=== PATIENT | female | born 1960 | race Caucasian/White ===

== ENCOUNTER 2017-12-15 13:52 | Inpatient (IN) | payer MEDICAID ==
[~2017-12-15] VITALS: Ht 162.6 cm; Wt 80.1 kg
[2017-12-15] MEDS ORDERED: SODIUM CHLORIDE 0.9% 1,000 ML IVB ONE (14:04)
[2017-12-15 14:50] LABS: Basophils # (auto) 0 uL; Basophils % (auto) 0.3 % (0.0-2.0); Eosinophils # (auto) 0.2 uL; Eosinophils % (auto) 1.1 % (0.0-7.0); Hematocrit 45.3 % (36.0-46.0); Hemoglobin 14.6 g/dL (12.2-16.2); Lymphocytes # (auto) 1.4 uL; Lymphocytes % (auto) 9.1 % (10.0-50.0); Mean Corpuscular Hemoglobin 30.3 pg (28.0-32.0); Mean Corpuscular Hgb Conc. 32.1 g/dL (32.0-36.0); Mean Corpuscular Volume 94.3 fL (80.0-100.0); Monocytes # (auto) 1.1 uL; Monocytes % (auto) 7.2 % (0.0-12.0); Neutrophils # (auto) 12.5 uL; Neutrophils % (auto) 82.3 % (37.0-80.0); Nucleated Red Blood Cells % 0.1 %; Platelet Count (auto) 232 10^3/uL (140-450); White Blood Cell 15.1 10^3/uL (4.4-10.8)
[2017-12-15 15:09] LABS: Albumin 3.1 g/dL (3.4-5.0); Anion Gap 9 (5-15); BUN/Creatinine Ratio 19.8; Blood Alcohol < 3.0 mg/dL (0-5); Blood Urea Nitrogen 17 mg/dL (7-18); Calcium 8.5 mg/dL (8.5-10.1); Carbon Dioxide 24 mmol/L (21-32); Chloride 105 mmol/L (98-107); GFR African American 88 mL/min; GFR Non-African American 73 mL/min; Glucose 105 mg/dL (74-106); Potassium 3.9 mmol/L (3.5-5.1); Sodium 138 mmol/L (136-145)
[2017-12-15 15:16] LABS: Alanine Aminotransferase 31 U/L (13-56); Alkaline Phosphatase 71 U/L (45-117); Aspartate Aminotransferase 30 U/L (15-37); Bilirubin, Total 0.4 mg/dL (0.2-1.0); Total Protein 7.3 g/dL (6.4-8.2)
[2017-12-15] MEDS ORDERED: cefTRIAXone 1GM/10ml IVPUSH 10 ML IV ONE (15:45)
[2017-12-15] MEDS ORDERED: DEXTROSE (50%) 50ML SYRG IV PRN (15:45)
[2017-12-15] MEDS ORDERED: HYDROcodone-ACET 10/325MG TAB PO PRN (16:00)
[2017-12-15] MEDS ORDERED: ALBUTEROL SULF 2.5 MG/0.5ML(0.5%) NEB SOLN NEB PRN (16:00)
[2017-12-15] MEDS ORDERED: LORazepam 0.5 MG TAB PO PRN (16:00)
[2017-12-15] MEDS ORDERED: MORPHINE SULFATE 4 MG/ML SYR/VIAL IV PRN (16:15)
[2017-12-15] MEDS ORDERED: NITROGLYCERIN 0.4 MG SL TAB SL PRN (16:15)
[2017-12-15] MEDS ORDERED: HYDROcodone-ACET 5/325MG TAB PO PRN (16:15)
[2017-12-15] MEDS ORDERED: ACETAMINOPHEN 325 MG TAB PO PRN (16:15)
[2017-12-15] MEDS ORDERED: DOCUSATE SOD 100 MG CAP PO PRN (16:15)
[2017-12-15] MEDS ORDERED: ONDANSETRON HCL 4 MG/2 ML VIAL IV PRN (16:15)
[2017-12-15] MEDS: InsuLIN REG 1unit/0.01ml Soln (100units/ml) SC SCH ×2 (16:45→22:54)
[2017-12-15] MEDS: ACCU-CHEK COMFORT CURVE STRIP VI SCH ×2 (16:45→22:54)
[2017-12-15] MEDS: METHOCARBAMOL 500 MG TAB PO SCH ×2 (17:39→22:54)
[2017-12-15] MEDS: CALCIUM W/VIT D (600MG/400IU) TAB PO SCH (17:39)
[2017-12-15] MEDS: DICYCLOMINE HCL 10 MG CAP PO SCH ×2 (17:39→22:53)
[2017-12-15 18:35] LABS: Urine Bacteria FEW /hpf (None Seen); Urine Blood Negative /uL (Negative); Urine WBC 2 /hpf (0 - 5)
[2017-12-15 18:46] LABS: Alcohol, Urine < 3.0 mg/dL (0-5); Amphetamine Screen, Urine NEGATIVE (NEGATIVE); Barbiturate Scree,Urine NEGATIVE (NEGATIVE); Benzodiazephine Screen, Urine NEGATIVE (NEGATIVE); Cannabinoid Screen, Urine POSITIVE (NEGATIVE); Cocaine Screen, Urine NEGATIVE (NEGATIVE); Opiate Scree,Urine POSITIVE (NEGATIVE); Phencyclidine Screen, Urine NEGATIVE (NEGATIVE)
[2017-12-15 20:00] VITALS: BP 134/75
[2017-12-15 21:44] VITALS: BP_SYST 134
[2017-12-15 21:48] VITALS: BP 105/63
[2017-12-15] MEDS ORDERED: MORPHINE SULF 30 mg ER tab PO SCH (22:00)
[2017-12-15] MEDS ORDERED: AMITRIPTYLINE HCL 25 MG TAB PO SCH (22:00)
[2017-12-15] MEDS ORDERED: traZODone HCL 50 MG TAB PO SCH (22:00)
[2017-12-15] MEDS: FLUTICASONE PROP NASAL SPR 0.05 % (50MCG) 16GM EACHNOSTRI SCH (22:52)
[2017-12-15] MEDS: SODIUM CHLOR 0.9% PF (SALINE LOCK) 10ML VIAL IV SCH (22:53)
[2017-12-15] MEDS: FERROUS SULFATE 325 MG TAB PO SCH (22:53)
[2017-12-15] MEDS: NAPHCON A OP SCH (22:53)
[2017-12-15] MEDS: FAMOTIDINE 20 MG TAB PO SCH (22:54)
[2017-12-15] MEDS: POTASSIUM CHLORIDE 8 MEQ TAB PO SCH (22:54)
[2017-12-15] MEDS: HYDROXYCHLOROQUINE SULFATE 200 MG TAB PO SCH (22:54)
[2017-12-16] MEDS ORDERED: METH-532 PO (01:36)
[2017-12-16] MEDS ORDERED: FERR1TAB5 PO (01:36)
[2017-12-16] MEDS ORDERED: FLUO20CA19 PO (01:36)
[2017-12-16] MEDS ORDERED: BENA10TA9 PO (01:36)
[2017-12-16] MEDS ORDERED: CETI10TA80 PO (01:36)
[2017-12-16] MEDS ORDERED: MORP30TA PO (01:36)
[2017-12-16] MEDS ORDERED: POTA10TA51 PO (01:36)
[2017-12-16] MEDS ORDERED: MULTTAB99 PO (01:36)
[2017-12-16] MEDS ORDERED: NAPHSOL OP (01:36)
[2017-12-16] MEDS ORDERED: ZOLP10TA PO (01:36)
[2017-12-16] MEDS ORDERED: ASPI81CH43 PO (01:36)
[2017-12-16] MEDS ORDERED: FLUT1SPR5 (01:36)
[2017-12-16] MEDS ORDERED: AMIT25TA9 PO (01:36)
[2017-12-16] MEDS ORDERED: CALCTAB25 PO (01:36)
[2017-12-16] MEDS ORDERED: LORA-205 PO (01:36)
[2017-12-16] MEDS ORDERED: TRAZ300T13 PO (01:36)
[2017-12-16] MEDS ORDERED: SITA50TA PO (01:36)
[2017-12-16] MEDS ORDERED: HYDR200T PO (01:36)
[2017-12-16] MEDS ORDERED: DIC10C PO (01:36)
[2017-12-16 05:00] VITALS: BP 112/62
[2017-12-16] MEDS: METHOCARBAMOL 500 MG TAB PO SCH ×2 (06:30→13:48)
[2017-12-16] MEDS: DICYCLOMINE HCL 10 MG CAP PO SCH ×2 (06:30→13:48)
[2017-12-16] MEDS: InsuLIN REG 1unit/0.01ml Soln (100units/ml) SC SCH ×2 (06:30→12:16)
[2017-12-16] MEDS: ACCU-CHEK COMFORT CURVE STRIP VI SCH ×2 (06:30→12:16)
[2017-12-16] MEDS: FERROUS SULFATE 325 MG TAB PO SCH (06:31)
[2017-12-16] MEDS: SODIUM CHLOR 0.9% PF (SALINE LOCK) 10ML VIAL IV SCH (06:31)
[2017-12-16] MEDS ORDERED: MORPHINE SULF 30 mg ER tab PO SCH (07:00)
[2017-12-16 07:10] LABS: Basophils # (auto) 0 uL; Basophils % (auto) 0.5 % (0.0-2.0); Eosinophils # (auto) 0.4 uL; Eosinophils % (auto) 5.3 % (0.0-7.0); Hemoglobin 12.5 g/dL (12.2-16.2); Lymphocytes # (auto) 1.8 uL; Lymphocytes % (auto) 23.7 % (10.0-50.0); Mean Corpuscular Hemoglobin 30.1 pg (28.0-32.0); Mean Corpuscular Volume 94.1 fL (80.0-100.0); Monocytes # (auto) 0.7 uL; Monocytes % (auto) 9.8 % (0.0-12.0); Neutrophils # (auto) 4.6 uL; Neutrophils % (auto) 60.7 % (37.0-80.0); Nucleated Red Blood Cells % 0.1 %; Platelet Count (auto) 212 10^3/uL (140-450); Red Blood Cells 4.15 10^6/uL (4.0-5.20); Red Cell Distribution Width 14.1 % (11.8-14.3); White Blood Cell 7.6 10^3/uL (4.4-10.8)
[2017-12-16] MEDS: CALCIUM W/VIT D (600MG/400IU) TAB PO SCH (07:40)
[2017-12-16 09:00] VITALS: BP 131/66
[2017-12-16] MEDS ORDERED: cefTRIAXone 1GM/10ml IVPUSH 10 ML IV SCH (09:00)
[2017-12-16 09:31] LABS: Albumin 2.6 g/dL (3.4-5.0); BUN/Creatinine Ratio 15.5; Calcium 8.3 mg/dL (8.5-10.1); Potassium 3.9 mmol/L (3.5-5.1)
[2017-12-16 09:34] LABS: Bilirubin, Total 0.3 mg/dL (0.2-1.0)
[2017-12-16] MEDS: POTASSIUM CHLORIDE 8 MEQ TAB PO SCH (09:34)
[2017-12-16] MEDS: FAMOTIDINE 20 MG TAB PO SCH (09:34)
[2017-12-16] MEDS: NAPHCON A OP SCH (09:35)
[2017-12-16] MEDS: FLUTICASONE PROP NASAL SPR 0.05 % (50MCG) 16GM EACHNOSTRI SCH (09:35)
[2017-12-16] MEDS: HYDROXYCHLOROQUINE SULFATE 200 MG TAB PO SCH (09:35)
[2017-12-16] MEDS ORDERED: MULTIPLE VITAMIN TAB PO SCH (10:00)
[2017-12-16] MEDS ORDERED: FLUoxetine HCL 20 MG CAP PO SCH (10:00)
[2017-12-16] MEDS ORDERED: LORATADINE 10 MG TAB PO SCH (10:00)
[2017-12-16] MEDS ORDERED: ASPirin-EC 81 mg tab PO SCH (10:00)
[2017-12-16] MEDS ORDERED: JANUVIA 25 MG PO SCH (10:00)
[2017-12-16] MEDS ORDERED: BENAZEPRIL HCL 10 MG TAB PO SCH (10:00)
[2017-12-16] MEDS ORDERED: B-COMPLEX W/ C & FOLIC ACID(NEPHROVITE TAB) PO SCH (10:00)
[2017-12-16 11:51] VITALS: BP 131/66
== END 2017-12-16 13:45 | disposition home or self-care (01) | DRG 52 ==
LOC: ER 13:52 → EDBD 13:52 → TELE 13:53 → TELE-WESTW 19:29 → WEST WING 19:51
PROVIDERS: ADMIT Internal Medicine; ATTEND Internal Medicine
PROC: 5A09357 Assistance with Respiratory Ventilation, Less than 24 Consecutive Hours, Continuous Positive Airway Pressure (ICD-10-PCS; principal; 2017-12-16)
DX: R40.4 Transient alteration of awareness (principal); E11.21 Type 2 diabetes mellitus with diabetic nephropathy; E44.0 Moderate protein-calorie malnutrition; E88.09 Other disorders of plasma-protein metabolism, not elsewhere classified; D64.9 Anemia, unspecified; I12.9 Hypertensive chronic kidney disease with stage 1 through stage 4 chronic kidney disease, or unspecified chronic kidney disease; S20.212A Contusion of left front wall of thorax, initial encounter; N39.0 Urinary tract infection, site not specified; N18.2 Chronic kidney disease, stage 2 (mild); E11.22 Type 2 diabetes mellitus with diabetic chronic kidney disease; F32.9 Major depressive disorder, single episode, unspecified; F41.9 Anxiety disorder, unspecified; G89.29 Other chronic pain; M19.90 Unspecified osteoarthritis, unspecified site; M79.7 Fibromyalgia; M81.0 Age-related osteoporosis without current pathological fracture; W18.30XA Fall on same level, unspecified, initial encounter; M54.2 Cervicalgia; M54.9 Dorsalgia, unspecified; Z68.30 Body mass index [BMI] 30.0-30.9, adult; Z87.01 Personal history of pneumonia (recurrent); Z90.49 Acquired absence of other specified parts of digestive tract
CPT/HCPCS: 36415; 70450; 71101; 71250; 80053; 80307; 80320; 81001; 82962; 83036; 83735; 84443; 84484; 85025; 87086; 87088; 87186; 93005; 94660; 94761; 96361; 96374

== ENCOUNTER 2019-01-30 12:12 | Emergency (ER) | payer MEDICAID ==
[~2019-01-30] VITALS: Ht 162.6 cm; Wt 83.9 kg
[~2019-01-30 12:12] MED LIST: AMIT25TA9 PO; ASPI81CH43 PO; BENA10TA9 PO; CALCTAB25 PO; CETI10TA80 PO; DIC10C PO; FERR1TAB5 PO; FLUO20CA19 PO; FLUT1SPR5; HYDR-4441 PO; LORA-205 PO; METH-532 PO; MORP30TA PO; MULTTAB99 PO; NAPHSOL OP; POTA10TA51 PO; SITA50TA PO; TRAZ300T13 PO; ZOLP10TA PO
[2019-01-30 12:40] VITALS: BP 145/75
[2019-01-30] MEDS ORDERED: KETOROLAC TROMETH 60MG/2ML VIAL IM ONE (16:00)
[2019-01-30] MEDS ORDERED: METHOCARBAMOL 500 MG TAB PO ONE (16:00)
== END 2019-01-30 16:30 | disposition home or self-care (01) ==
LOC: ER 12:12
DX: S13.4XXA Sprain of ligaments of cervical spine, initial encounter (principal); M19.90 Unspecified osteoarthritis, unspecified site; E11.9 Type 2 diabetes mellitus without complications; I10 Essential (primary) hypertension; Z88.1 Allergy status to other antibiotic agents; Z88.5 Allergy status to narcotic agent; Z88.0 Allergy status to penicillin; Z88.2 Allergy status to sulfonamides; Z91.040 Latex allergy status; Z79.82 Long term (current) use of aspirin; Z79.899 Other long term (current) drug therapy; Z90.49 Acquired absence of other specified parts of digestive tract; V49.59XA Passenger injured in collision with other motor vehicles in traffic accident, initial encounter; Y93.89 Activity, other specified; Y99.8 Other external cause status; Y92.89 Other specified places as the place of occurrence of the external cause
CPT/HCPCS: 72040; 96372; 99283; J1885

== ENCOUNTER 2020-01-18 18:39 | Inpatient (IN) | payer MEDICAID ==
[~2020-01-18] VITALS: Ht 162.6 cm; Wt 97.1 kg
[~2020-01-18 18:39] MED LIST changes: -DIC10C PO; +DICY10CA PO; -FERR1TAB5 PO; +FERR45TA7 PO; +HYDR-4188 PO; -HYDR-4441 PO
[2020-01-18] MEDS ORDERED: levoFLOXacin 750MG 150 ML IV ONE (20:00)
[2020-01-18] MEDS ORDERED: SODIUM CHLORIDE 0.9% 1,000 ML IV ONE (20:00)
[2020-01-18] MEDS ORDERED: methylPREDNISolone SOD SUCC 125 MG/2 ML VL IV ONE (20:00)
[2020-01-18 21:19] LABS: Hemoglobin 11.5 g/dL (12.2-16.2); Lymphocytes # (auto) 1.8 10 ^3/uL (0.4-5.4); Monocytes % (auto) 7.4 % (0.0-12.0)
[2020-01-18 21:28] LABS: Basophils # (auto) 0.1 10 ^3/uL (0-0.2); Basophils % (auto) 0.5 % (0.0-2.0); Eosinophils # (auto) 0.4 10 ^3/uL (0-0.8); Eosinophils % (auto) 3.3 % (0.0-7.0); Hematocrit 36.3 % (36.0-46.0); Lymphocytes % (auto) 13.7 % (10.0-50.0); Mean Corpuscular Hemoglobin 29.7 pg (28.0-32.0); Mean Corpuscular Hgb Conc. 31.7 g/dL (32.0-36.0); Mean Corpuscular Volume 93.6 fL (80.0-100.0); Neutrophils # (auto) 9.8 10 ^3/uL (1.6-8.6); Neutrophils % (auto) 75.1 % (37.0-80.0); Platelet Count (auto) 228 10^3/uL (140-450); Red Blood Cells 3.87 10^6/uL (4.0-5.20); Red Cell Distribution Width 13.7 % (11.8-14.3); White Blood Cell 13.1 10^3/uL (4.4-10.8)
[2020-01-18 21:29] LABS: Albumin 2.3 g/dL (3.4-5.0); Calcium 7.7 mg/dL (8.5-10.1); Potassium 4.6 mmol/L (3.5-5.1)
[2020-01-18 21:34] LABS: BUN/Creatinine Ratio 9.3; Bilirubin, Total 0.5 mg/dL (0.2-1.0); Total Protein 6.3 g/dL (6.4-8.2)
[2020-01-18] MEDS ORDERED: ACETAMINOPHEN 325 MG TAB PO PRN (22:15)
[2020-01-18] MEDS ORDERED: DEXTROSE (50%) 50ML SYRG IV PRN (22:15)
[2020-01-18] MEDS ORDERED: ONDANSETRON HCL 4 MG/2 ML VIAL IV PRN (22:15)
[2020-01-18] MEDS ORDERED: MORPHINE SULF INJ 2 MG/ML SYRINGE 1ML IV PRN (22:15)
[2020-01-18] MEDS ORDERED: HYDROcodone-ACET 5/325MG TAB PO PRN (22:15)
[2020-01-18] MEDS ORDERED: NITROGLYCERIN 0.4 MG SL TAB SL PRN (22:15)
[2020-01-18 22:31] LABS: Urine Bacteria NONE SEEN /hpf (None Seen); Urine Blood Negative /uL (Negative); Urine Specific Gravity 1.014 (1.001-1.035); Urine WBC 16 /hpf (0 - 5)
[2020-01-18 22:37] LABS: Magnesium 2.2 mg/dL (1.6-2.6)
[2020-01-18 22:45] LABS: CRP High Sensitivity 9.45 mg/dL (< 0.3)
[2020-01-19] VITALS (9 sets, daily range): BP systolic 134–171; BP diastolic 64–85
--- NOTE | 2020-01-19 00:30 | NUR ---
Telemetry admit from MEKHI ALVAREZCARSON admitted to Telemetry unit after SBAR received. Patient oriented to Damaris Nicole primary RN, unit, room, bed, and unit policies regarding patient care and visiting hours. Patient now on continuous telemetry monitoring, tele box # 3 and telemetry reading on arrival to unit is SR74. Patient placed on bedside oxygen @ 2L via NC, weighed by bedscale and encouraged to call if they need something. Call light within reach, instructed to call for assist, pt verbalized understanding, IV to left AC, site patent and benign, Incentive spirometer placed at bedside and education provided, instructed to use Q1hr WA, pt verbalized understanding and able to return demonstration, All questions and concerns addressed, patient verbalized understanding.
--- NOTE | 2020-01-19 01:30 | NUR ---
ACTIVITY PT WAS NOTED AMBULATING TO BATHROOM, NOTED A DECREASE IN O2 SAT @88% WHEN ON RA AND WITH ACTIVITY, NO CURRENT C/O SOB, O2 APPLIED AND O2 INCREASED TO 96% ON 2L VIA NC, CHANGED TO 25FT NC WHEN AMBULATING TO BATHROOM, CONT CARE
[2020-01-19] MEDS: TEMAZEPAM 15 MG CAP PO PRN ×2 (01:41→22:28)
[2020-01-19] MEDS ORDERED: GABA-339 PO (01:54)
[2020-01-19] MEDS ORDERED: HYDR-531 PO (01:54)
[2020-01-19 06:21] LABS: Basophils # (auto) 0 10 ^3/uL (0-0.2); Basophils % (auto) 0.2 % (0.0-2.0); Eosinophils # (auto) 0 10 ^3/uL (0-0.8); Eosinophils % (auto) 0.1 % (0.0-7.0); Hematocrit 41.1 % (36.0-46.0); Hemoglobin 13.6 g/dL (12.2-16.2); Lymphocytes # (auto) 0.5 10 ^3/uL (0.4-5.4); Lymphocytes % (auto) 4.9 % (10.0-50.0); Mean Corpuscular Hemoglobin 31.1 pg (28.0-32.0); Mean Corpuscular Volume 94.1 fL (80.0-100.0); Monocytes # (auto) 0.2 10 ^3/uL (0-1.3); Monocytes % (auto) 2.2 % (0.0-12.0); Neutrophils # (auto) 9.6 10 ^3/uL (1.6-8.6); Neutrophils % (auto) 92.6 % (37.0-80.0); Platelet Count (auto) 218 10^3/uL (140-450); Red Blood Cells 4.37 10^6/uL (4.0-5.20); Red Cell Distribution Width 13.7 % (11.8-14.3); White Blood Cell 10.4 10^3/uL (4.4-10.8)
[2020-01-19 06:27] LABS: Potassium 4.3 mmol/L (3.5-5.1)
[2020-01-19] MEDS: ACCU-CHEK COMFORT CURVE STRIP VI SCH ×4 (06:39→22:24)
[2020-01-19] MEDS: InsuLIN REG 1unit/0.01ml Soln (100units/ml) SC SCH ×3 (06:39→17:00)
--- NOTE | 2020-01-19 06:45 | NUR ---
HTN BP 177/101, P 60, PT ASYMPTOMATIC, PT STATES " I DONT TAKE ANYTHING FOR MY BLOOD PRESSURE" PT UPDATED ON HIGH BP, PT AGREED TO TAKE AN EARLY DOSE OF BENAZEPRIL ONLY, STATES " I WILL ONLY TAKE A LOW DOSE OF BENAZEPRIL AND MY DAUGHTER WILL BRING MY MEDICATIONS THIS MORNING", CONT CARE
[2020-01-19 06:46] LABS: Albumin 2.6 g/dL (3.4-5.0); BUN/Creatinine Ratio 12.5; Bilirubin, Total 0.5 mg/dL (0.2-1.0); Calcium 8.2 mg/dL (8.5-10.1); Total Protein 7.4 g/dL (6.4-8.2)
[2020-01-19] MEDS: BENAZEPRIL HCL 10 MG TAB PO SCH (07:18)
[2020-01-19] MEDS: ALBUTEROL SULF HFA 90MCG INH 200DOSE IN SCH ×3 (07:42→22:26)
--- NOTE | 2020-01-19 07:42 | NUR ---
RT NOTE: WENT TO PTS ROOM TO ADMINISTERED ALBUTEROL HFA INHALER. HR 74, RR 18, SPO2 95% ON 2L NC. PT TOLERATED WELL NO ADVERSE REACTIONS. WILL CONTINUE TO MONITOR PT.
--- NOTE | 2020-01-19 08:15 | NUR ---
Received pt's report from Stephanie/RN, call light within reach, pt on 2 lit O2 via N/C, no pain or distress noted or reported, will continue to monitor pt.
[2020-01-19] MEDS: DOXYCYCLINE 100MG/250ML 250 ML IV SCH ×2 (10:05→21:57)
[2020-01-19] MEDS: ZINC SULFATE 220mg CAP or TAB PO SCH (10:05)
[2020-01-19] MEDS: ASCORBIC ACID 1,000 MG TAB PO SCH (10:06)
[2020-01-19] MEDS: CHOLECALCIFEROL (VITD3) 1,000IU=25mCg TAB PO SCH (10:06)
[2020-01-19] MEDS: FAMOTIDINE 20 MG TAB PO SCH ×2 (10:06→21:48)
[2020-01-19] MEDS: ENOXAPARIN SOD 40 MG/0.4 ML SYRINGE SC SCH (10:07)
[2020-01-19] MEDS ORDERED: BUSP15TA60 PO (11:49)
[2020-01-19] MEDS ORDERED: PAR20T PO (11:49)
[2020-01-19] MEDS ORDERED: ESOM0.1C PO (11:58)
[2020-01-19] MEDS ORDERED: ALOG1TAB PO (11:58)
[2020-01-19] MEDS ORDERED: DICL-164 PO (11:58)
[2020-01-19] MEDS ORDERED: DICL-176 PO (11:58)
[2020-01-19] MEDS ORDERED: DIPH25CA6 PO (11:58)
--- NOTE | 2020-01-19 12:15 | NUR ---
Pt refused to receive the insulin coverage for her blood sugar, pt's BS 227, pt educated on the risk of not receiving her insulin, and pt also educated on the benefits of receiving the insulin as schedule, will continue to monitor pt.
[2020-01-19] MEDS ORDERED: hydrALAZINE HCL 20 MG/ML VL IV PRN (13:00)
--- NOTE | 2020-01-19 13:04 | NUR ---
Called and spoke to Dr. Villalba regarding pt requesting antidiarrheal medication, pt reports 8 watery BMs, pt's BP 171/85, pt requesting for her po morphine to be restarted, and that pt does not have a PRN BP medication, orders receive for Hydralazine 10 mg iv, for the pt's home po Morphine to be start, and to send a stool sample for c. diff. Doctor stated to send the stool sample for c.diff first and if no c.diff then he will start pt on immodium, and for the rest of home medication he will come and see pt and check the home medication.
[2020-01-19] MEDS: MORPHINE SULF 30 mg ER tab PO SCH ×2 (14:08→21:46)
--- NOTE | 2020-01-19 14:32 | NUR ---
Pt requested a dressing on her Rt finger cut, pt cut herself 2 weeks ago, pt has a dry scab, picture taken, cleaned with normal saline, pad dry with gauze and covered with a clear tegaderm dressing. Pt refused a band aid.
[2020-01-19] MEDS ORDERED: cefTRIAXone 1GM/50ML D5W 50 ML IV ONE (15:30)
--- NOTE | 2020-01-19 17:00 | NUR ---
Report given to DEQUAN Vega, pt taken to room 297A with all her personal belongings, pt's home medications given to nurse DEQUAN Vega.
--- NOTE | 2020-01-19 17:00 | NUR ---
RECEIVED REPORT FROM DEQUAN HOLLAND.
--- NOTE | 2020-01-19 17:04 | NUR ---
Dr. Villalba at bed side to see pt, doctor informed that pt refused insulin, that pt wants her home medications restarted, that pt's Covid19 results are negative, orders received for MRSA swab, and to restart pt on CPAP.
[2020-01-19] MEDS ORDERED: LORazepam 0.5 MG TAB PO PRN (17:30)
[2020-01-19] MEDS: METHOCARBAMOL 500 MG TAB PO SCH ×2 (18:27→21:50)
[2020-01-19] MEDS: GABAPENTIN 300 MG CAP PO SCH ×2 (18:27→21:47)
--- NOTE | 2020-01-19 19:45 | NUR ---
Opening Shift Note Assumed care of patient, awake and alert. No S/S of distress/SOB noted. Instructed on POC and to call for assist PRN. Bed is in lowest locked position with bed rails up x2 and call light is within reach. Bed side commode at the bedside.
[2020-01-19] MEDS: PHENIRAMINE OP SCH (21:44)
[2020-01-19] MEDS: NAPHAZOLINE OP SCH (21:44)
[2020-01-19] MEDS: CALCIUM W/VIT D (600MG/400IU) TAB PO SCH (21:45)
[2020-01-19] MEDS: busPIRone HCL 10 MG TAB PO SCH (21:47)
[2020-01-19] MEDS: methylPREDNISolone SOD SUCC 40 MG/ML VL IV SCH (21:51)
[2020-01-19] MEDS: FLUTICASONE PROP NASAL SPR 0.05 % (50MCG) 16GM SCH (21:51)
[2020-01-19] MEDS ORDERED: InsuLIN REG 1unit/0.01ml Soln (100units/ml) SC SCH (22:00)
[2020-01-19] MEDS ORDERED: PATIENTS OWN MEDICATION (Morphine Sulfate 1 TAB) PO SCH (22:00)
[2020-01-19] MEDS ORDERED: AMITRIPTYLINE HCL 25 MG TAB PO SCH (22:00)
[2020-01-19] MEDS ORDERED: HYDR-4188 PO (22:04)
--- NOTE | 2020-01-19 22:10 | NUR ---
Regarding Plaquenil: Patient ruled out negative for COVID, pharmacy requested clarification if patient is to still receive Plaquenil tonight. Spoke with patient and patient receives Plaquenil at home as a scheduled medication stating she takes "Plaquenil 200mg twice a day for rheumatoid arthritis." Updated medication reconciliation. Called MD for Plaquenil order and clarification. Spoke with Dr. Almeida, who is covering for Sandu tonight, about Patients negative COVID status and regarding Plaquenil order. MD Almeida ordered for patient to be placed on Plaquenil dose as she receives it at home. To place order and speak with pharmacy regarding new order.
--- NOTE | 2020-01-19 22:15 | NUR ---
RT NOTE PLACED PT ON HOSPITAL OWNED HOME CPAP UNIT RESPIRATORY1 WITH SMALL NASAL MASK. TITRATED PRESSURE FOR PT COMFORT. PT WORE CPAP FOR 5 MINUTES OR LESS AND STATED THAT SHE CANNOT TOLERATE IT BECAUSE THE MASK TAKES UP TOO MUCH OF HER FACE AND SHE IS GETTING A PANIC ATTACK BECAUSE SHE IS VERY CLAUSTROPHOBIC. DEQUAN MAX AT BEDSIDE TO ADMINISTER MEDS AND AWARE OF PT REFUSAL. PT PLACED ON 3L NASAL CANNULA TO SLEEP AND HAS BEDSIDE POX ON FOR EASY MONITORING. PT TOOK 2 PUFFS ALBUTEROL VIA SPACER WITHOUT ADVERSE REACTION NOTED PRIOR TO PLACEMENT. BS ARE CTA. PT APPEARS COMFRTABLE AT THIS TIME. CONT ORDERED. POX 94% Addendum: 01/19/20 at 2238 by Lana Pedersen RT Amended: Links added.
--- NOTE | 2020-01-19 22:15 | NUR ---
Spoke with pharmacy: Spoke with pharmacy regarding Plaquenil order and medication reconciliation being updated.
--- NOTE | 2020-01-19 22:30 | NUR ---
Patient refused Insulin: Patient refused insulin per sliding scale after blood sugar check stating "I just dont think I need insulin. I dont take it at home so I dont need it." Educated patient about the risks and benefits of insulin for blood sugar control. Patient still refused at this time.
[2020-01-20 05:00] VITALS: BP 155/89
[2020-01-20] MEDS: GABAPENTIN 300 MG CAP PO SCH ×3 (06:11→18:00)
[2020-01-20] MEDS: ALBUTEROL SULF HFA 90MCG INH 200DOSE IN SCH ×2 (06:11→14:11)
[2020-01-20] MEDS: MORPHINE SULF 30 mg ER tab PO SCH ×2 (06:11→14:11)
[2020-01-20] MEDS: CALCIUM W/VIT D (600MG/400IU) TAB PO SCH ×2 (06:12→14:10)
--- NOTE | 2020-01-20 06:12 | NUR ---
AT BEDSIDE. PT SELF-ADMINISTERED MDI INHALER. NO ADVERSE REACTION NOTED. SPO2 96% ON 3L NC, HR 66. WILL CONTINUE WITH NEXT SCHEDULED TX.
[2020-01-20] MEDS: METHOCARBAMOL 500 MG TAB PO SCH ×3 (06:13→18:00)
[2020-01-20] MEDS: ACCU-CHEK COMFORT CURVE STRIP VI SCH ×3 (06:17→17:00)
[2020-01-20] MEDS: InsuLIN REG 1unit/0.01ml Soln (100units/ml) SC SCH ×3 (06:17→17:00)
--- NOTE | 2020-01-20 07:45 | NUR ---
OPENING NOTES ASSUMED CARE OF PT. ALERT AND ORIENTED. NO S/S OF SOB/DISTRESS NOTED. BED SET TO LOWEST POSITION/LOCKED. BEDSIDE RAILS UP X2. CALL LIGHT WITHIN REACH. INSTRUCTED PT TO CALL FOR ASSISTANCE. UPDATE ON POC. PT VERBALIZED UNDERSTANDING. WILL CONTINUE TO MONITOR Q1HR AND PRN.
[2020-01-20] MEDS ORDERED: cefTRIAXone 1GM/50ML D5W 50 ML IV SCH (09:00)
[2020-01-20 09:02] VITALS: BP 134/63
[2020-01-20] MEDS ORDERED: FLUoxetine HCL 20 MG CAP PO SCH (10:00)
[2020-01-20] MEDS ORDERED: LORATADINE 10 MG TAB PO SCH (10:00)
[2020-01-20] MEDS: ASCORBIC ACID 1,000 MG TAB PO SCH (10:00)
[2020-01-20] MEDS: PHENIRAMINE OP SCH (10:00)
[2020-01-20] MEDS: NAPHAZOLINE OP SCH (10:00)
[2020-01-20] MEDS ORDERED: ALOGLIPTIN BENZOATE 6.25 MG PO SCH (10:00)
[2020-01-20] MEDS: ENOXAPARIN SOD 40 MG/0.4 ML SYRINGE SC SCH (10:00)
[2020-01-20] MEDS ORDERED: ASPirin 81 mg TAB PO SCH (10:00)
[2020-01-20] MEDS: ZINC SULFATE 220mg CAP or TAB PO SCH (10:00)
[2020-01-20] MEDS: DOXYCYCLINE 100MG/250ML 250 ML IV SCH (11:13)
[2020-01-20] MEDS: methylPREDNISolone SOD SUCC 40 MG/ML VL IV SCH (11:13)
[2020-01-20] MEDS: FLUTICASONE PROP NASAL SPR 0.05 % (50MCG) 16GM SCH (11:14)
[2020-01-20] MEDS: busPIRone HCL 10 MG TAB PO SCH (11:18)
[2020-01-20] MEDS: BENAZEPRIL HCL 10 MG TAB PO SCH (11:19)
[2020-01-20] MEDS: FAMOTIDINE 20 MG TAB PO SCH (11:19)
[2020-01-20] MEDS: CHOLECALCIFEROL (VITD3) 1,000IU=25mCg TAB PO SCH (11:20)
--- NOTE | 2020-01-20 11:49 | NUR ---
BLOOD GLUCOSE PATIENT BLOOD GLUCOSE 206 MG/DL. PATIENT IS REFUSING INSULIN PER SLIDING SCALE. EDUCATED PATIENT ON THE RISK OF BENEFITS OF INSULIN. PATIENT STATED "I DON'T TAKE ANYTHING AT HOME."
[2020-01-20 12:59] VITALS: BP 159/84
[2020-01-20 16:58] VITALS: BP 156/87
[2020-01-20 17:07] VITALS: BP 159/84
--- NOTE | 2020-01-20 18:24 | NUR ---
Discharge Discharge instructions given as ordered. Encourage to follow up with PMD as instructed. All questions and concerns addressed. Patient verbalized understanding. Home medications held in Pharmacy returned to patient. IV removed with catheter intact, pressure dressing applied. Telemetry unit #[id number] returned to ICU.
--- NOTE | 2020-01-20 18:26 | NUR ---
TELE MONITOR TELE BOX #[id number] SENT BACK TO ICU. [facility].
--- NOTE | 2020-01-20 18:54 | NUR ---
Patient taken to vehicle via wheelchair with all personal belongings, accompanied by staff and family member. No distress noted at time of departure.
== END 2020-01-20 18:54 | disposition home or self-care (01) | DRG 139 ==
LOC: ER 18:40 → TELE 18:41 → TELE-EAST 23:55 → TELE-WESTW 01-19 17:03
PROVIDERS: ADMIT Nurse Practitioner; ATTEND Internal Medicine
DX: J18.9 Pneumonia, unspecified organism (principal); E11.22 Type 2 diabetes mellitus with diabetic chronic kidney disease; E44.0 Moderate protein-calorie malnutrition; J45.901 Unspecified asthma with (acute) exacerbation; D72.829 Elevated white blood cell count, unspecified; R06.03 Acute respiratory distress; F41.9 Anxiety disorder, unspecified; F51.04 Psychophysiologic insomnia; G89.4 Chronic pain syndrome; I12.9 Hypertensive chronic kidney disease with stage 1 through stage 4 chronic kidney disease, or unspecified chronic kidney disease; M06.9 Rheumatoid arthritis, unspecified; Z68.36 Body mass index [BMI] 36.0-36.9, adult; N18.9 Chronic kidney disease, unspecified; Z82.5 Family history of asthma and other chronic lower respiratory diseases; F32.9 Major depressive disorder, single episode, unspecified; Z03.818 Encounter for observation for suspected exposure to other biological agents ruled out; Z88.5 Allergy status to narcotic agent; Z88.0 Allergy status to penicillin; Z88.2 Allergy status to sulfonamides; Z88.8 Allergy status to other drugs, medicaments and biological substances; Z88.1 Allergy status to other antibiotic agents; Z91.040 Latex allergy status
CPT/HCPCS: 36415; 36600; 71045; 71250; 80053; 81001; 82728; 82805; 82962; 83605; 83615; 83735; 84443; 84484; 85025; 85379; 86141; 87070; 87081; 87086; 87804; 87880; 94640; 94660; 96365; 96375; G0378; J0696; J1956; J2405; J3490

== ENCOUNTER 2020-05-21 12:24 | Emergency (ER) | payer MEDICARE, MEDICAID ==
[~2020-05-21] VITALS: Ht 162.6 cm; Wt 81.6 kg
[~2020-05-21 12:24] MED LIST changes: +ALOG1TAB PO; -AMIT25TA9 PO; -BENA10TA9 PO; +BUSP15TA60 PO; +DICL-164 PO; +DICL-176 PO; +DIPH25CA6 PO; +ESOM0.1C PO; +GABA-339 PO; +HYDR-531 PO; +PAR20T PO; -SITA50TA PO; -ZOLP10TA PO
[2020-05-21 13:09] VITALS: BP 2/73
== END 2020-05-21 14:57 | disposition home or self-care (01) ==
LOC: ER 12:24
DX: J18.9 Pneumonia, unspecified organism (principal); F41.9 Anxiety disorder, unspecified; E11.22 Type 2 diabetes mellitus with diabetic chronic kidney disease; I12.9 Hypertensive chronic kidney disease with stage 1 through stage 4 chronic kidney disease, or unspecified chronic kidney disease; N18.9 Chronic kidney disease, unspecified; Z90.49 Acquired absence of other specified parts of digestive tract
CPT/HCPCS: 71045

== ENCOUNTER 2021-03-05 20:29 | Inpatient (IN) | payer MEDICAID ==
[~2021-03-05] VITALS: Ht 162.6 cm; Wt 95.0 kg
[~2021-03-05 20:29] MED LIST changes: -DICL-164 PO; -DICL-176 PO; +DICL75TA3 PO; +DICL75TA4 PO
[2021-03-05] MEDS ORDERED: ALBUTEROL SULF 2.5 MG/0.5ML(0.5%) NEB SOLN HHN ONE (23:00)
[2021-03-05] MEDS ORDERED: IPRATROPIUM BROM 0.5 MG/2.5ML INH SOL HHN ONE (23:00)
[2021-03-05] MEDS ORDERED: DexAMETHasone SOD PHOS 10MG/1ML VIAL INJ IM ONE (23:00)
[2021-03-06 00:06] LABS: Albumin 2.6 g/dL (3.4-5.0); Anion Gap 6 (5-15); Aspartate Aminotransferase 33 U/L (15-37); BUN/Creatinine Ratio 24.7; Blood Urea Nitrogen 21 mg/dL (7-18); Calcium 7.9 mg/dL (8.5-10.1); Carbon Dioxide 23 mmol/L (21-32); Chloride 109 mmol/L (98-107); GFR African American 88 mL/min; GFR Non-African American 73 mL/min; Glucose 137 mg/dL (74-106); Potassium 4.3 mmol/L (3.5-5.1); Sodium 138 mmol/L (136-145)
[2021-03-06 00:15] LABS: Alanine Aminotransferase 27 U/L (13-56); Alkaline Phosphatase 61 U/L (45-117); Bilirubin, Total 0.4 mg/dL (0.2-1.0); Total Protein 6.5 g/dL (6.4-8.2)
[2021-03-06 00:17] LABS: CRP High Sensitivity 0.71 mg/dL (< 0.3)
[2021-03-06 01:33] LABS: Basophils # (auto) 0 10 ^3/uL (0-0.2); Basophils % (auto) 0.3 % (0.0-2.0); Eosinophils # (auto) 0.9 10 ^3/uL (0-0.8); Eosinophils % (auto) 5.3 % (0.0-7.0); Hematocrit 42.2 % (36.0-46.0); Hemoglobin 13.2 g/dL (12.2-16.2); Lymphocytes # (auto) 1.8 10 ^3/uL (0.4-5.4); Lymphocytes % (auto) 11.5 % (10.0-50.0); Mean Corpuscular Hgb Conc. 31.2 g/dL (32.0-36.0); Mean Corpuscular Volume 99.2 fL (80.0-100.0); Monocytes # (auto) 0.8 10 ^3/uL (0-1.3); Monocytes % (auto) 5.3 % (0.0-12.0); Neutrophils # (auto) 12.5 10 ^3/uL (1.6-8.6); Neutrophils % (auto) 77.6 % (37.0-80.0); Nucleated Red Blood Cells % 0.1 %; Platelet Count (auto) 236 10^3/uL (140-450); Red Blood Cells 4.25 10^6/uL (4.0-5.20); Red Cell Distribution Width 12.9 % (11.8-14.3); White Blood Cell 16.1 10^3/uL (4.4-10.8)
[2021-03-06 02:08] LABS: Urine Bacteria FEW /hpf (None Seen); Urine Blood Negative /uL (Negative); Urine Hyaline Cast MOD /lpf (0 - 2); Urine Specific Gravity 1.018 (1.001-1.035); Urine WBC 4 /hpf (0 - 5)
[2021-03-06] MEDS ORDERED: AZITHROMYCIN 500MG/ 250ML 250 ML IV ONE (03:30)
[2021-03-06] MEDS ORDERED: NITROGLYCERIN 0.4 MG SL TAB SL PRN (06:15)
[2021-03-06] MEDS ORDERED: IOHEXOL 350 MG/ML 100ML IJ ONE ×2 (06:41→10:58)
[2021-03-06] MEDS ORDERED: DexAMETHasone INJECTION 10 MG in D5W 5% 50 ML IV SCH (10:00)
[2021-03-06] MEDS ORDERED: DexAMETHasone SOD PHOS 10MG/1ML VIAL INJ IV SCH (10:00)
[2021-03-06] MEDS ORDERED: ASCORBIC ACID 500 MG TAB PO SCH (10:00)
[2021-03-06] MEDS: MORPHINE SULF INJ 2 MG/ML SYRINGE 1ML IV PRN ×3 (10:23→21:48)
[2021-03-06] MEDS: ONDANSETRON HCL 4 MG/2 ML VIAL IV PRN ×3 (10:23→21:49)
[2021-03-06] MEDS: ASPirin 81 mg TAB PO SCH (10:39)
[2021-03-06] MEDS: CHOLECALCIFEROL (VITD3) 1,000UNIT=25mCg TAB PO SCH (10:39)
[2021-03-06] MEDS: ENOXAPARIN SOD 40 MG/0.4 ML SYRINGE SC SCH (10:39)
[2021-03-06 10:40] VITALS: BP 113/46
[2021-03-06] MEDS: DOXYCYCLINE 100MG/250ML 250 ML IV SCH ×2 (11:49→21:48)
[2021-03-06] MEDS: ACETAMINOPHEN 325 MG TAB PO PRN ×2 (12:14→20:12)
[2021-03-06] MEDS ORDERED: ALBUTEROL SULF HFA 90MCG INH 200DOSE IN SCH (14:00)
[2021-03-06] MEDS: IPRATROPIUM BROM 0.5 MG/2.5ML INH SOL NEB SCH (18:10)
[2021-03-06] MEDS: ALBUTEROL SULF 2.5 MG/0.5ML(0.5%) NEB SOLN NEB SCH (18:10)
[2021-03-06] MEDS: BUDESONIDE (INHALATION) 0.5 MG/2 ML NEB NEB SCH (18:11)
[2021-03-06] MEDS: methylPREDNISolone SOD SUCC 40 MG/ML VL IV SCH (19:35)
[2021-03-06] MEDS: FAMOTIDINE 20 MG TAB PO SCH (21:48)
[2021-03-06] MEDS: METHOCARBAMOL 500 MG TAB PO SCH (21:48)
[2021-03-06 22:48] VITALS: BP 158/91
[2021-03-07] MEDS: MORPHINE SULF INJ 2 MG/ML SYRINGE 1ML IV PRN ×4 (02:00→17:43)
[2021-03-07] MEDS: ACETAMINOPHEN 325 MG TAB PO PRN (02:36)
[2021-03-07] MEDS: ONDANSETRON HCL 4 MG/2 ML VIAL IV PRN (03:04)
[2021-03-07 05:00] VITALS: BP 144/73
[2021-03-07] MEDS: methylPREDNISolone SOD SUCC 40 MG/ML VL IV SCH ×4 (05:41→17:42)
[2021-03-07] MEDS: METHOCARBAMOL 500 MG TAB PO SCH ×2 (05:42→13:32)
[2021-03-07] MEDS: IPRATROPIUM BROM 0.5 MG/2.5ML INH SOL NEB SCH ×3 (07:49→18:59)
[2021-03-07] MEDS: BUDESONIDE (INHALATION) 0.5 MG/2 ML NEB NEB SCH ×2 (07:49→18:59)
[2021-03-07] MEDS: ALBUTEROL SULF 2.5 MG/0.5ML(0.5%) NEB SOLN NEB SCH ×3 (07:49→18:59)
[2021-03-07 08:30] VITALS: BP 154/75
[2021-03-07 10:17] LABS: Basophils # (auto) 0 10 ^3/uL (0-0.2); Basophils % (auto) 0.1 % (0.0-2.0); Eosinophils # (auto) 0 10 ^3/uL (0-0.8); Hematocrit 37.8 % (36.0-46.0); Hemoglobin 12.4 g/dL (12.2-16.2); Lymphocytes # (auto) 0.7 10 ^3/uL (0.4-5.4); Lymphocytes % (auto) 4.1 % (10.0-50.0); Mean Corpuscular Hemoglobin 31.4 pg (28.0-32.0); Mean Corpuscular Hgb Conc. 32.9 g/dL (32.0-36.0); Mean Corpuscular Volume 95.5 fL (80.0-100.0); Monocytes # (auto) 0.5 10 ^3/uL (0-1.3); Monocytes % (auto) 3.2 % (0.0-12.0); Neutrophils # (auto) 14.9 10 ^3/uL (1.6-8.6); Neutrophils % (auto) 92.6 % (37.0-80.0); Platelet Count (auto) 232 10^3/uL (140-450); Red Blood Cells 3.95 10^6/uL (4.0-5.20); Red Cell Distribution Width 12.3 % (11.8-14.3)
[2021-03-07] MEDS: DOXYCYCLINE 100MG/250ML 250 ML IV SCH (10:25)
[2021-03-07] MEDS: ASPirin 81 mg TAB PO SCH (10:25)
[2021-03-07 10:26] LABS: Calcium 8.8 mg/dL (8.5-10.1); Potassium 4.2 mmol/L (3.5-5.1)
[2021-03-07] MEDS: CHOLECALCIFEROL (VITD3) 1,000UNIT=25mCg TAB PO SCH (10:26)
[2021-03-07] MEDS: FAMOTIDINE 20 MG TAB PO SCH (10:26)
[2021-03-07] MEDS: ENOXAPARIN SOD 40 MG/0.4 ML SYRINGE SC SCH (10:26)
[2021-03-07] MEDS: HYDROcodone-ACET 5/325MG TAB PO PRN ×2 (10:27→16:03)
[2021-03-07 12:30] VITALS: BP 146/69
[2021-03-07 17:00] VITALS: BP 149/77
[2021-03-07] MEDS ORDERED: PANT40TA2 PO (18:17)
[2021-03-07] MEDS ORDERED: IPRA0.00 NEB (18:17)
[2021-03-07] MEDS ORDERED: PRED20TA2 PO (18:17)
[2021-03-07] MEDS ORDERED: DOXY-346 PO (18:17)
[2021-03-07 18:29] VITALS: BP 149/77
== END 2021-03-07 20:05 | disposition home or self-care (01) | DRG 137 ==
LOC: ER 20:32 → TELE 03-06 06:05 → TELE-CENTR 03-06 19:46 → TELE-EAST 03-06 19:48
PROVIDERS: ADMIT Internal Medicine; ATTEND Internal Medicine
DX: U07.1 COVID-19 (principal); J96.01 Acute respiratory failure with hypoxia; J18.9 Pneumonia, unspecified organism; J44.0 Chronic obstructive pulmonary disease with (acute) lower respiratory infection; E11.9 Type 2 diabetes mellitus without complications; D64.9 Anemia, unspecified; F32.9 Major depressive disorder, single episode, unspecified; I10 Essential (primary) hypertension; J98.11 Atelectasis; F41.9 Anxiety disorder, unspecified; G89.29 Other chronic pain; Z79.4 Long term (current) use of insulin; Z79.82 Long term (current) use of aspirin; Z79.899 Other long term (current) drug therapy; Z82.3 Family history of stroke; Z82.49 Family history of ischemic heart disease and other diseases of the circulatory system; Z82.5 Family history of asthma and other chronic lower respiratory diseases; Z83.3 Family history of diabetes mellitus; Z90.710 Acquired absence of both cervix and uterus; M19.90 Unspecified osteoarthritis, unspecified site; Z90.49 Acquired absence of other specified parts of digestive tract; Z88.0 Allergy status to penicillin; Z88.2 Allergy status to sulfonamides; Z88.8 Allergy status to other drugs, medicaments and biological substances; Z88.1 Allergy status to other antibiotic agents; Z91.040 Latex allergy status
CPT/HCPCS: 36415; 36600; 71045; 71275; 80048; 80053; 81001; 82728; 82805; 83605; 83615; 83735; 83880; 84484; 85025; 85379; 86141; 87040; 87426; 87804; 93005; 93970; 94640; 96365; 96372; 96375; G0378; J1100; J2405; J3490; J7060

== ENCOUNTER 2021-09-11 17:55 | Emergency (ER) | payer MEDICAID ==
[~2021-09-11] VITALS: Ht 162.6 cm; Wt 78.5 kg
[~2021-09-11 17:55] MED LIST changes: +CETI10TA2 PO; -CETI10TA80 PO; +DIPH25CA29 PO; -DIPH25CA6 PO; +DOXY-346 PO; +IPRA0.00 NEB; +PANT40TA2 PO; +PRED20TA2 PO
[2021-09-11 19:21] VITALS: BP 127/68
[2021-09-11] MEDS ORDERED: KETOROLAC TROMETH 60MG/2ML VIAL IM ONE (20:45)
== END 2021-09-11 21:43 | disposition home or self-care (01) ==
LOC: ER 17:55
DX: M25.562 Pain in left knee (principal); M25.561 Pain in right knee; Z90.49 Acquired absence of other specified parts of digestive tract; Z88.2 Allergy status to sulfonamides; Z88.0 Allergy status to penicillin; Z86.73 Personal history of transient ischemic attack (TIA), and cerebral infarction without residual deficits; W18.09XA Striking against other object with subsequent fall, initial encounter; Y93.01 Activity, walking, marching and hiking; Y92.89 Other specified places as the place of occurrence of the external cause; Y99.8 Other external cause status
CPT/HCPCS: 73552; 73562; 96372; 99284; J1885

== ENCOUNTER 2022-02-18 08:42 | Emergency (ER) | payer MEDICAID ==
[~2022-02-18] VITALS: Ht 162.6 cm; Wt 75.7 kg
[2022-02-18 08:47] VITALS: BP 111/64
[2022-02-18 09:47] LABS: Basophils # (auto) 0 10 ^3/uL (0-0.2); Basophils % (auto) 0.1 % (0.0-2.0); Eosinophils # (auto) 0 10 ^3/uL (0-0.8); Eosinophils % (auto) 0.1 % (0.0-7.0); Hematocrit 35.3 % (36.0-46.0); Hemoglobin 11.8 g/dL (12.2-16.2); Lymphocytes # (auto) 0.4 10 ^3/uL (0.4-5.4); Lymphocytes % (auto) 1.6 % (10.0-50.0); Mean Corpuscular Hemoglobin 31.4 pg (28.0-32.0); Mean Corpuscular Hgb Conc. 33.5 g/dL (32.0-36.0); Mean Corpuscular Volume 93.9 fL (80.0-100.0); Monocytes % (auto) 4.3 % (0.0-12.0); Neutrophils # (auto) 21.6 10 ^3/uL (1.6-8.6); Neutrophils % (auto) 93.9 % (37.0-80.0); Red Blood Cells 3.76 10^6/uL (4.0-5.20); Red Cell Distribution Width 12.7 % (11.8-14.3)
[2022-02-18 10:06] LABS: Albumin 2.3 g/dL (3.4-5.0); Calcium 8.4 mg/dL (8.5-10.1); Potassium 3.9 mmol/L (3.5-5.1)
[2022-02-18 10:07] LABS: Urine Bacteria MANY /hpf (None Seen); Urine Blood Negative /uL (Negative); Urine Mucus FEW (None Seen); Urine Specific Gravity 1.025 (1.001-1.035); Urine WBC 74 /hpf (0 - 5)
[2022-02-18] MEDS ORDERED: ACETAMINOPHEN 500 MG TAB PO ONE (10:30)
[2022-02-18 10:37] LABS: Bilirubin, Total 0.3 mg/dL (0.2-1.0); Total Protein 5.6 g/dL (6.4-8.2)
[2022-02-18 10:44] LABS: BUN/Creatinine Ratio 24.7
[2022-02-18] MEDS ORDERED: NITR-87 PO (11:27)
[2022-02-18] MEDS ORDERED: cefTRIAXone 1GM/50ML D5W 50 ML IV ONE (11:30)
== END 2022-02-18 12:13 | disposition home or self-care (01) ==
LOC: ER 08:42
DX: N39.0 Urinary tract infection, site not specified (principal); E43 Unspecified severe protein-calorie malnutrition; I12.9 Hypertensive chronic kidney disease with stage 1 through stage 4 chronic kidney disease, or unspecified chronic kidney disease; E11.22 Type 2 diabetes mellitus with diabetic chronic kidney disease; N18.9 Chronic kidney disease, unspecified; J45.909 Unspecified asthma, uncomplicated; Z68.28 Body mass index [BMI] 28.0-28.9, adult; Z86.2 Personal history of diseases of the blood and blood-forming organs and certain disorders involving the immune mechanism; Z90.49 Acquired absence of other specified parts of digestive tract; Z79.82 Long term (current) use of aspirin; Z79.899 Other long term (current) drug therapy; Z88.0 Allergy status to penicillin; Z88.2 Allergy status to sulfonamides; Z88.1 Allergy status to other antibiotic agents; Z88.8 Allergy status to other drugs, medicaments and biological substances; Z91.040 Latex allergy status; Z20.822 Contact with and (suspected) exposure to COVID-19
CPT/HCPCS: 36415; 71045; 80053; 81001; 84484; 85025; 87426; 93005; 96365; 99285; J0696

== ENCOUNTER 2022-09-24 17:52 | Inpatient (IN) | payer MEDICAID ==
[~2022-09-24] VITALS: Ht 162.6 cm; Wt 69.2 kg
[~2022-09-24 17:52] MED LIST changes: +NITR-87 PO
[2022-09-24 19:06] LABS: Basophils # (auto) 0.1 10 ^3/uL (0-0.2); Nucleated Red Blood Cells % 0.1 %; White Blood Cell 17.9 10^3/uL (4.4-10.8)
[2022-09-24 19:08] LABS: Basophils % (auto) 0.5 % (0.0-2.0); Eosinophils # (auto) 0 10 ^3/uL (0-0.8); Eosinophils % (auto) 0.2 % (0.0-7.0); Hematocrit 32.8 % (36.0-46.0); Hemoglobin 10.9 g/dL (12.2-16.2); Lymphocytes # (auto) 2.2 10 ^3/uL (0.4-5.4); Lymphocytes % (auto) 12.5 % (10.0-50.0); Mean Corpuscular Hemoglobin 31.4 pg (28.0-32.0); Mean Corpuscular Hgb Conc. 33.2 g/dL (32.0-36.0); Mean Corpuscular Volume 94.7 fL (80.0-100.0); Monocytes # (auto) 1.5 10 ^3/uL (0-1.3); Monocytes % (auto) 8.5 % (0.0-12.0); Neutrophils % (auto) 78.3 % (37.0-80.0); Red Blood Cells 3.46 10^6/uL (4.0-5.20)
[2022-09-24 19:13] LABS: Acetaminophen 3.9 ug/mL (10-30); Albumin 1.7 g/dL (3.4-5.0); Anion Gap 7 (5-15); Blood Urea Nitrogen 26 mg/dL (7-18); Calcium 7.6 mg/dL (8.5-10.1); Carbon Dioxide 23 mmol/L (21-32); Chloride 109 mmol/L (98-107); Glucose 121 mg/dL (74-106); Potassium 3.3 mmol/L (3.5-5.1); Salicylate < 1.7 mg/dL (2.8-20.0); Sodium 139 mmol/L (136-145)
[2022-09-24 19:18] LABS: Alanine Aminotransferase 43 U/L (13-56); Alkaline Phosphatase 191 U/L (45-117); Aspartate Aminotransferase 39 U/L (15-37); BUN/Creatinine Ratio 36.6; Bilirubin, Total 0.8 mg/dL (0.2-1.0); Blood Alcohol < 3.0 mg/dL (0-5); GFR African American 108 mL/min; GFR Non-African American 89 mL/min; Total Protein 5.3 g/dL (6.4-8.2)
[2022-09-25] MEDS ORDERED: ACETAMINOPHEN 325 MG TAB PO PRN (03:15)
[2022-09-25] MEDS ORDERED: LORazepam 0.5 MG TAB PO PRN (03:15)
[2022-09-25] MEDS ORDERED: MAALOX PLUS or MAALOX 30 ML PO PRN (03:15)
[2022-09-25] MEDS ORDERED: DOCUSATE SOD 100 MG CAP PO PRN (03:15)
[2022-09-25 05:23] LABS: Basophils # (auto) 0.1 10 ^3/uL (0-0.2); Basophils % (auto) 0.8 % (0.0-2.0); Lymphocytes # (auto) 2.6 10 ^3/uL (0.4-5.4); Red Cell Distribution Width 14.6 % (11.8-14.3)
[2022-09-25 05:25] LABS: Eosinophils # (auto) 0.1 10 ^3/uL (0-0.8); Eosinophils % (auto) 0.6 % (0.0-7.0); Hematocrit 30.4 % (36.0-46.0); Hemoglobin 9.9 g/dL (12.2-16.2); Mean Corpuscular Hgb Conc. 32.6 g/dL (32.0-36.0); Mean Corpuscular Volume 95.1 fL (80.0-100.0); Monocytes # (auto) 1.5 10 ^3/uL (0-1.3); Neutrophils # (auto) 12.1 10 ^3/uL (1.6-8.6); Neutrophils % (auto) 73.6 % (37.0-80.0); Red Blood Cells 3.19 10^6/uL (4.0-5.20); White Blood Cell 16.4 10^3/uL (4.4-10.8)
[2022-09-25 05:38] LABS: BUN/Creatinine Ratio 40.3; Calcium 7.5 mg/dL (8.5-10.1); Potassium 3.5 mmol/L (3.5-5.1)
[2022-09-25] MEDS: SODIUM CHLORIDE 0.9% 1,000 ML IV SCH ×2 (05:39→21:02)
[2022-09-25] MEDS: cefTRIAXone 1GM/50ML D5W 50 ML IV SCH (05:39)
[2022-09-25] MEDS: HYDROcodone-ACET 5/325MG TAB PO PRN ×2 (08:40→22:27)
[2022-09-25 11:43] LABS: Alcohol, Urine < 3.0 mg/dL (0-10); Amphetamine Screen, Urine NEGATIVE (NEGATIVE); Barbiturate Scree,Urine NEGATIVE (NEGATIVE); Benzodiazephine Screen, Urine NEGATIVE (NEGATIVE); Cannabinoid Screen, Urine NEGATIVE (NEGATIVE); Cocaine Screen, Urine NEGATIVE (NEGATIVE); Opiate Scree,Urine X-NORESULT (NEGATIVE); Phencyclidine Screen, Urine NEGATIVE (NEGATIVE)
[2022-09-25 11:45] LABS: Urine Bacteria FEW /hpf (None Seen); Urine Blood Negative /uL (Negative); Urine Hyaline Cast FEW /lpf (0 - 2); Urine Mucus FEW (None Seen); Urine Specific Gravity 1.019 (1.001-1.035); Urine WBC 7 /hpf (0 - 5)
[2022-09-25] MEDS ORDERED: MORPHINE SULFATE INJ 2 MG/ml SYRG ONE (12:54)
[2022-09-25] MEDS: ONDANSETRON HCL 4 MG/2 ML VIAL IV PRN (12:55)
[2022-09-25] MEDS: MORPHINE SULFATE INJ 2 MG/ml SYRG IV PRN (12:56)
[2022-09-26 05:00] VITALS: BP 110/50
[2022-09-26] MEDS: HYDROcodone-ACET 5/325MG TAB PO PRN ×2 (07:07→22:13)
[2022-09-26 09:00] VITALS: BP 124/57
[2022-09-26] MEDS: MORPHINE SULFATE INJ 2 MG/ml SYRG IV PRN ×2 (09:14→14:50)
[2022-09-26] MEDS: cefTRIAXone 1GM/50ML D5W 50 ML IV SCH (10:59)
[2022-09-26 13:00] VITALS: BP 110/63
[2022-09-26] MEDS: SODIUM CHLORIDE 0.9% 1,000 ML IV SCH ×2 (14:50→22:13)
[2022-09-26 17:00] VITALS: BP 122/74
[2022-09-26] MEDS: ENOXAPARIN SOD 40 MG/0.4 ML SYRINGE SC SCH (19:37)
[2022-09-26 22:00] VITALS: BP 110/58
[2022-09-27 05:00] VITALS: BP 129/62
[2022-09-27] MEDS: MORPHINE SULFATE INJ 2 MG/ml SYRG IV PRN ×2 (05:45→22:47)
[2022-09-27 08:00] VITALS: BP 131/62
[2022-09-27 09:00] VITALS: BP 131/62
[2022-09-27] MEDS: cefTRIAXone 1GM/50ML D5W 50 ML IV SCH (09:36)
[2022-09-27] MEDS: ENOXAPARIN SOD 40 MG/0.4 ML SYRINGE SC SCH (09:36)
[2022-09-27] MEDS ORDERED: TRAZ150T84 PO (12:47)
[2022-09-27] MEDS ORDERED: FLUT250M2 INH (12:47)
[2022-09-27] MEDS ORDERED: HYDR-4609 PO (12:47)
[2022-09-27 13:00] VITALS: BP 139/75
[2022-09-27 17:00] VITALS: BP 136/73
[2022-09-27] MEDS: PANTOPRAZOLE 40 MG TAB PO SCH (18:14)
[2022-09-27] MEDS: SODIUM CHLORIDE 0.9% 1,000 ML IV SCH (21:55)
[2022-09-27 22:00] VITALS: BP 128/78
[2022-09-28] MEDS: SODIUM CHLORIDE 0.9% 1,000 ML IV SCH ×2 (04:00→14:35)
[2022-09-28] MEDS: HYDROcodone-ACET 5/325MG TAB PO PRN ×3 (04:33→22:32)
[2022-09-28 05:00] VITALS: BP 140/70
[2022-09-28 08:00] VITALS: BP 124/66
[2022-09-28 09:00] VITALS: BP 124/66
[2022-09-28] MEDS: cefTRIAXone 1GM/50ML D5W 50 ML IV SCH (10:12)
[2022-09-28] MEDS: PANTOPRAZOLE 40 MG TAB PO SCH (10:14)
[2022-09-28] MEDS: ENOXAPARIN SOD 40 MG/0.4 ML SYRINGE SC SCH (10:14)
[2022-09-28] MEDS: MORPHINE SULFATE INJ 2 MG/ml SYRG IV PRN (10:15)
[2022-09-28 13:00] VITALS: BP 136/75
[2022-09-28 14:17] LABS: Basophils # (auto) 0 10 ^3/uL (0-0.2); Basophils % (auto) 0.1 % (0.0-2.0); Eosinophils # (auto) 0.1 10 ^3/uL (0-0.8); Eosinophils % (auto) 0.3 % (0.0-7.0); Hematocrit 33.1 % (36.0-46.0); Hemoglobin 10.2 g/dL (12.2-16.2); Lymphocytes # (auto) 2.1 10 ^3/uL (0.4-5.4); Mean Corpuscular Hemoglobin 30.9 pg (28.0-32.0); Mean Corpuscular Hgb Conc. 30.9 g/dL (32.0-36.0); Mean Corpuscular Volume 100.3 fL (80.0-100.0); Monocytes # (auto) 1.7 10 ^3/uL (0-1.3); Monocytes % (auto) 9.7 % (0.0-12.0); Neutrophils # (auto) 13.8 10 ^3/uL (1.6-8.6); Neutrophils % (auto) 77.9 % (37.0-80.0); White Blood Cell 17.7 10^3/uL (4.4-10.8)
[2022-09-28 14:40] LABS: BUN/Creatinine Ratio 47.2; Calcium 7.5 mg/dL (8.5-10.1)
[2022-09-28] MEDS ORDERED: POTASSIUM EFFERVESENT TAB 25 MEQ PO ONE (16:15)
[2022-09-28 17:00] VITALS: BP 137/67
[2022-09-28 22:00] VITALS: BP 141/66
[2022-09-29] MEDS ORDERED: POTASSIUM CHL 20 Meq TABLET PO ONE
[2022-09-29 05:00] VITALS: BP 133/64
[2022-09-29] MEDS: SODIUM CHLORIDE 0.9% 1,000 ML IV SCH (06:30)
[2022-09-29 08:20] VITALS: BP 141/63
[2022-09-29 09:00] VITALS: BP 141/63
[2022-09-29] MEDS: ENOXAPARIN SOD 40 MG/0.4 ML SYRINGE SC SCH (09:40)
[2022-09-29] MEDS: cefTRIAXone 1GM/50ML D5W 50 ML IV SCH (09:40)
[2022-09-29] MEDS: PANTOPRAZOLE 40 MG TAB PO SCH (09:40)
[2022-09-29] MEDS: MORPHINE SULFATE INJ 2 MG/ml SYRG IV PRN ×2 (09:41→14:56)
[2022-09-29] MEDS: HYDROcodone-ACET 5/325MG TAB PO PRN (12:12)
[2022-09-29] MEDS: ONDANSETRON HCL 4 MG/2 ML VIAL IV PRN (12:12)
[2022-09-29 13:00] VITALS: BP 117/49
[2022-09-29 13:47] LABS: BUN/Creatinine Ratio 28.6; Calcium 7.8 mg/dL (8.5-10.1); Potassium 3.6 mmol/L (3.5-5.1)
[2022-09-29 17:00] VITALS: BP 120/65
[2022-09-29 22:00] VITALS: BP 120/60
[2022-09-30 05:00] VITALS: BP 120/63
[2022-09-30] MEDS: SODIUM CHLORIDE 0.9% 1,000 ML IV SCH (07:15)
[2022-09-30 08:15] VITALS: BP 129/71
[2022-09-30 09:00] VITALS: BP 129/71
[2022-09-30] MEDS: ENOXAPARIN SOD 40 MG/0.4 ML SYRINGE SC SCH (09:51)
[2022-09-30] MEDS: cefTRIAXone 1GM/50ML D5W 50 ML IV SCH (09:51)
[2022-09-30] MEDS: PANTOPRAZOLE 40 MG TAB PO SCH (09:51)
[2022-09-30] MEDS: MORPHINE SULFATE INJ 2 MG/ml SYRG IV PRN (11:15)
[2022-09-30 13:00] VITALS: BP 131/67
[2022-09-30] MEDS: HYDROcodone-ACET 5/325MG TAB PO PRN (14:39)
[2022-09-30] MEDS: ONDANSETRON HCL 4 MG/2 ML VIAL IV PRN (14:44)
[2022-09-30] MEDS ORDERED: PANTOPRAZOLE 40 MG/10 ML VIAL INJ IV ONE (15:00)
[2022-09-30 16:04] VITALS: BP 131/67
[2022-09-30 17:00] VITALS: BP 154/64
[2022-10-01] MEDS ORDERED: PANTOPRAZOLE 40 MG/10 ML VIAL INJ IV SCH (10:00)
== END 2022-09-30 19:40 | DRG 342 ==
LOC: ER 17:52 → OVERFLOW 09-25 03:18 → CENTRAL 09-26 04:04
PROVIDERS: ADMIT Hospitalist; ATTEND Internal Medicine
DX: S82.202A Unspecified fracture of shaft of left tibia, initial encounter for closed fracture (principal); G93.41 Metabolic encephalopathy; E11.22 Type 2 diabetes mellitus with diabetic chronic kidney disease; E11.42 Type 2 diabetes mellitus with diabetic polyneuropathy; I12.9 Hypertensive chronic kidney disease with stage 1 through stage 4 chronic kidney disease, or unspecified chronic kidney disease; J45.909 Unspecified asthma, uncomplicated; N18.9 Chronic kidney disease, unspecified; W01.0XXA Fall on same level from slipping, tripping and stumbling without subsequent striking against object, initial encounter; F32.A Depression, unspecified; F41.9 Anxiety disorder, unspecified; S82.402A Unspecified fracture of shaft of left fibula, initial encounter for closed fracture; M19.90 Unspecified osteoarthritis, unspecified site; N39.0 Urinary tract infection, site not specified; Z20.822 Contact with and (suspected) exposure to COVID-19; Y93.01 Activity, walking, marching and hiking; Z88.0 Allergy status to penicillin; Z88.3 Allergy status to other anti-infective agents; Z98.84 Bariatric surgery status; Z82.3 Family history of stroke; Z82.49 Family history of ischemic heart disease and other diseases of the circulatory system; Z82.5 Family history of asthma and other chronic lower respiratory diseases; Z83.3 Family history of diabetes mellitus; Z88.1 Allergy status to other antibiotic agents; Z91.048 Other nonmedicinal substance allergy status; Z88.2 Allergy status to sulfonamides; Z88.8 Allergy status to other drugs, medicaments and biological substances; Z91.040 Latex allergy status; Z90.49 Acquired absence of other specified parts of digestive tract; Y92.89 Other specified places as the place of occurrence of the external cause; Y99.8 Other external cause status
CPT/HCPCS: 36415; 70450; 73610; 80048; 80053; 80307; 80320; 80329; 81001; 83735; 85025; 87426; 93005; 97110; C9113; G0378; J0696; J2405

== ENCOUNTER 2023-10-17 12:33 | Emergency (ER) | payer MEDICAID ==
[~2023-10-17] VITALS: Ht 152.4 cm; Wt 58.0 kg
[~2023-10-17 12:33] MED LIST changes: -DICL75TA4 PO; +DIPH-753 PO; -DIPH25CA29 PO; -DOXY-346 PO; +FLUT250M2 INH; +HYDR-4609 PO; -HYDR-531 PO; -LORA-205 PO; -NITR-87 PO; -PRED20TA2 PO; +TRAZ150T84 PO; -TRAZ300T13 PO
[2023-10-17 13:33] VITALS: PULSE 74; RESP 16; O2SAT 93
[2023-10-17 13:36] LABS: Basophils # (auto) 0 10 ^3/uL (0-0.2); Basophils % (auto) 0.1 % (0.0-2.0); Eosinophils # (auto) 0.3 10 ^3/uL (0-0.8); Eosinophils % (auto) 1.8 % (0.0-7.0); Hematocrit 38.7 % (36.0-46.0); Hemoglobin 12.4 g/dL (12.2-16.2); Lymphocytes # (auto) 1.3 10 ^3/uL (0.4-5.4); Lymphocytes % (auto) 9.2 % (10.0-50.0); Mean Corpuscular Hemoglobin 31.1 pg (28.0-32.0); Mean Corpuscular Volume 97.1 fL (80.0-100.0); Monocytes % (auto) 6.8 % (0.0-12.0); Neutrophils # (auto) 11.7 10 ^3/uL (1.6-8.6); Neutrophils % (auto) 82.1 % (37.0-80.0); Red Blood Cells 3.98 10^6/uL (4.0-5.20); Red Cell Distribution Width 13.8 % (11.8-14.3); White Blood Cell 14.3 10^3/uL (4.4-10.8)
[2023-10-17 13:51] LABS: Partial Thromboplastin Time 26.4 SEC (24.5-34.5); Prothrombin Time 10.5 sec (9.3-11.8)
[2023-10-17 14:04] LABS: Alanine Aminotransferase 21 U/L (7-40); Albumin 3.4 g/dL (3.2-4.8); Alkaline Phosphatase 59 U/L (46-116); Anion Gap 3 (5-15); Aspartate Aminotransferase 24 U/L (13-40); BUN/Creatinine Ratio 24.1 (10.0-20.0); Bilirubin, Total 0.2 mg/dL (0.2-1.0); Blood Urea Nitrogen 21 mg/dL (9-23); Calcium 8.4 mg/dL (8.7-10.4); Carbon Dioxide 23 mmol/L (20-30); Chloride 112 mmol/L (98-107); Glucose 106 mg/dL (74-106); Magnesium 1.7 mg/dL (1.6-2.6); Potassium 4.5 mmol/L (3.5-5.1); Sodium 138 mmol/L (136-145); Total Protein 5.9 g/dL (5.7-8.2)
[2023-10-17] MEDS ORDERED: NALOXONE HCL 0.4 MG/ML VIAL IV ONE (14:15)
[2023-10-17 16:29] VITALS: BP 112/50; PULSE 80; RESP 16; TEMP 97.9; O2SAT 96
== END 2023-10-17 16:38 | disposition home or self-care (01) ==
LOC: ER 12:33
DX: T40.2X1A Poisoning by other opioids, accidental (unintentional), initial encounter (principal); I12.9 Hypertensive chronic kidney disease with stage 1 through stage 4 chronic kidney disease, or unspecified chronic kidney disease; E11.22 Type 2 diabetes mellitus with diabetic chronic kidney disease; N18.9 Chronic kidney disease, unspecified; K80.20 Calculus of gallbladder without cholecystitis without obstruction; F32.9 Major depressive disorder, single episode, unspecified; J45.909 Unspecified asthma, uncomplicated; M19.90 Unspecified osteoarthritis, unspecified site; F41.9 Anxiety disorder, unspecified; Z86.2 Personal history of diseases of the blood and blood-forming organs and certain disorders involving the immune mechanism; Z98.890 Other specified postprocedural states; Z88.8 Allergy status to other drugs, medicaments and biological substances; Z79.899 Other long term (current) drug therapy; Y92.89 Other specified places as the place of occurrence of the external cause
CPT/HCPCS: 36415; 70450; 71045; 80053; 83735; 83880; 84484; 85025; 85610; 85730; 93005

== ENCOUNTER 2023-10-30 09:10 | Emergency (ER) | payer MEDICAID ==
[~2023-10-30] VITALS: Ht 162.6 cm; Wt 52.3 kg
[2023-10-30] MEDS: HYDROcodone-ACET 10/325MG TAB PO ONE (11:22)
[2023-10-30 13:01] VITALS: BP 129/60; PULSE 79; RESP 18; TEMP 98.1; O2SAT 98
== END 2023-10-30 13:18 | disposition home or self-care (01) ==
LOC: ER 09:10
DX: M79.18 Myalgia, other site (principal); R07.89 Other chest pain; E11.22 Type 2 diabetes mellitus with diabetic chronic kidney disease; I12.9 Hypertensive chronic kidney disease with stage 1 through stage 4 chronic kidney disease, or unspecified chronic kidney disease; N18.9 Chronic kidney disease, unspecified; J45.909 Unspecified asthma, uncomplicated; Z98.51 Tubal ligation status; Z88.0 Allergy status to penicillin; Z88.2 Allergy status to sulfonamides; Z88.6 Allergy status to analgesic agent; Z91.040 Latex allergy status
CPT/HCPCS: 71046; 93005

== ENCOUNTER 2024-02-10 12:01 | Inpatient (IN) | payer MEDICAID ==
[~2024-02-10] VITALS: Ht 149.9 cm; Wt 61.9 kg
[~2024-02-10 12:01] MED LIST changes: -HYDR-4188 PO; +HYDR-4491 PO; +POTA-36 PO; -POTA10TA51 PO
[2024-02-10 12:15] VITALS: PULSE 94; RESP 20; O2SAT 90
[2024-02-10] MEDS: NALOXONE HCL 1MG/ML 2ML SYRINGE IV ONE (12:33)
[2024-02-10 12:58] LABS: Hematocrit 36.8 % (36.0-46.0); Hemoglobin 11.6 g/dL (12.2-16.2); Mean Corpuscular Hemoglobin 30.4 pg (28.0-32.0); Mean Corpuscular Hgb Conc. 31.4 g/dL (32.0-36.0); Mean Corpuscular Volume 96.9 fL (80.0-100.0); Red Cell Distribution Width 13.8 % (11.8-14.3); White Blood Cell 20.4 10^3/uL (4.4-10.8)
[2024-02-10 13:01] LABS: Basophils % (manual) 0 (0.0-2.0); Blast Cells 0; Eosinophils % (manual) 0 (0-7); Metamyelocytes % 0; Myelocytes % 0; Promyelocytes % 0; Reactive Lymphocytes 0
[2024-02-10 13:13] LABS: Alanine Aminotransferase 33 U/L (7-40); Albumin 3.3 g/dL (3.2-4.8); Alkaline Phosphatase 88 U/L (46-116); Anion Gap 10 (5-15); Aspartate Aminotransferase 41 U/L (13-40); BUN/Creatinine Ratio 18.6 (10.0-20.0); Band Neutrophils % (manual) 6; Blood Alcohol < 3.0 mg/dL (<10); Blood Urea Nitrogen 62 mg/dL (9-23); Calcium 8.1 mg/dL (8.5-10.1); Carbon Dioxide 15 mmol/L (20-30); Chloride 107 mmol/L (98-107); Glucose 138 mg/dL (74-106); Hypochromia Slight; Lymphocytes % (manual) 4 (10.0-50.0); Monocytes % (manual) 8 (0-12); Platelet Estimate Adequate; Sodium 132 mmol/L (136-145)
[2024-02-10 13:14] LABS: Bilirubin, Total < 0.2 mg/dL (0.2-1.0); Total Protein 5.5 g/dL (5.7-8.2)
[2024-02-10 13:19] LABS: Potassium 5.6 mmol/L (3.5-5.1)
[2024-02-10 13:23] LABS: Amphetamine Screen, Urine Neg (NEGATIVE); Barbiturate Scree,Urine Neg (NEGATIVE); Benzodiazephine Screen, Urine Neg (NEGATIVE); Cannabinoid Screen, Urine Neg (NEGATIVE); Cocaine Screen, Urine Neg (NEGATIVE); Opiate Scree,Urine Pos (NEGATIVE); Phencyclidine Screen, Urine Neg (NEGATIVE)
[2024-02-10 13:26] LABS: Creatine Kinase IFCC 693 U/L (34-145)
[2024-02-10 13:28] LABS: Lipase 21 U/L (12-53)
[2024-02-10] MEDS ORDERED: levoFLOXacin 500MG 100 ML IV ONE (13:30)
[2024-02-10] MEDS: CALCIUM GLUC 1,000mg/50ml-NS 50 ML IV ONE (13:37)
[2024-02-10] MEDS: SODIUM CHLORIDE 0.9% 1,000 ML IV ONE ×2 (13:44→16:12)
[2024-02-10] MEDS: SODIUM BICARB 8.4% 50Meq/50ml SYR INJ IV ONE (13:44)
[2024-02-10] MEDS: cefTRIAXone 1GM/50ML D5W 50 ML IV ONE (13:53)
[2024-02-10] MEDS: SODIUM ZIRCONIUM CYCL 10 GM PAK PO ONE (14:49)
[2024-02-10] MEDS: ALBUTEROL SULF 2.5 MG/0.5ML(0.5%) NEB SOLN NEB ONE (14:54)
[2024-02-10] MEDS: ACETAMINOPHEN 325 MG TAB PO ONE (16:02)
[2024-02-10 16:31] LABS: Urine Amorphous Crystal FEW /hpf (None Seen); Urine Bacteria MANY /hpf (None Seen); Urine Blood Negative /uL (Negative); Urine Clarity Turbid (Clear); Urine Color Yellow (Yellow); Urine Protein, UAD 2+ (Negative); Urine Specific Gravity 1.027 (1.001-1.035); Urine Urobilinogen Normal (Negative); Urine WBC 37 /hpf (0 - 5)
[2024-02-10] MEDS: FUROSEMIDE 20 MG/2 ML VIAL IV ONE (17:41)
[2024-02-10] MEDS: ALBUMIN 25% 100 ML IV ONE (17:45)
[2024-02-10] MEDS ORDERED: VANCOMYCIN PER PHARMACY 0 MG IV SCH (18:00)
[2024-02-10] MEDS: PANTOPRAZOLE 40 MG/10 ML VIAL INJ IV ONE (18:54)
[2024-02-10] MEDS: SODIUM CHLORIDE 0.9% 1,000 ML IV SCH ×2 (18:54→21:22)
[2024-02-10 19:01] LABS: Chloride 111 mmol/L (98-107); Potassium 4.9 mmol/L (3.5-5.1); Sodium 136 mmol/L (136-145)
[2024-02-10 19:02] LABS: Anion Gap 9 (5-15); Calcium 7.7 mg/dL (8.5-10.1); Carbon Dioxide 16 mmol/L (20-30)
[2024-02-10 19:07] LABS: BUN/Creatinine Ratio 17.8 (10.0-20.0); Glucose 85 mg/dL (74-106)
[2024-02-10 19:08] LABS: Blood Urea Nitrogen 46 mg/dL (9-23)
[2024-02-10 19:21] LABS: INR 1.01 (0.9-1.15); Prothrombin Time 10.7 sec (9.3-11.8)
[2024-02-10 19:27] VITALS: PULSE 106; RESP 21; O2SAT 92
[2024-02-10] MEDS: VANCOMYCIN 1GM/200ML 200 ML IV ONE (19:39)
[2024-02-10] MEDS: PHENYLEPHRINE IV 250 ML IV ONE (21:23)
[2024-02-10] MEDS: MEROPENEM 1GM IVPB 50 ML IV SCH (22:07)
[2024-02-10] MEDS: PHENYLEPHRINE IV 250 ML IV SCH (22:20)
[2024-02-10] MEDS: ACCU-CHEK COMFORT CURVE STRIP VI SCH (23:56)
[2024-02-10] MEDS: InsuLIN REG 1unit/0.01ml Soln (100units/ml) SC SCH (23:56)
[2024-02-11] VITALS (78 sets, daily range): BP systolic 92–160; BP diastolic 44–78; PULSE 78–113; RESP 10–23; TEMP 98.4–99; O2SAT 94–100
[2024-02-11] MEDS: MORPHINE SULFATE INJ 2 MG/ml SYRG IV ONE (04:08)
[2024-02-11 06:05] LABS: Basophils # (auto) 0 10 ^3/uL (0-0.2); Basophils % (auto) 0.1 % (0.0-2.0); Eosinophils # (auto) 0 10 ^3/uL (0-0.8); Lymphocytes # (auto) 0.6 10 ^3/uL (0.4-5.4); Lymphocytes % (auto) 3.5 % (10.0-50.0); Mean Corpuscular Hemoglobin 30.7 pg (28.0-32.0); Mean Corpuscular Hgb Conc. 31.4 g/dL (32.0-36.0); Mean Corpuscular Volume 97.9 fL (80.0-100.0); Monocytes # (auto) 1.4 10 ^3/uL (0-1.3); Monocytes % (auto) 8.1 % (0.0-12.0); Neutrophils % (auto) 88.3 % (37.0-80.0); Red Blood Cells 3.58 10^6/uL (4.0-5.20); Red Cell Distribution Width 13.8 % (11.8-14.3)
[2024-02-11] MEDS: DEXTROSE (50%) 50ML SYRG IV PRN (06:10)
[2024-02-11 06:16] LABS: Chloride 114 mmol/L (98-107); Potassium 4.9 mmol/L (3.5-5.1); Sodium 140 mmol/L (136-145)
[2024-02-11 06:17] LABS: Anion Gap 10 (5-15); Calcium 8.1 mg/dL (8.7-10.4); Carbon Dioxide 16 mmol/L (20-30)
[2024-02-11 06:22] LABS: BUN/Creatinine Ratio 25.9 (10.0-20.0); Blood Urea Nitrogen 42 mg/dL (9-23); Glucose 71 mg/dL (74-106)
[2024-02-11] MEDS: ONDANSETRON HCL 4 MG/2 ML VIAL IV PRN (09:15)
[2024-02-11] MEDS: VANCOMYCIN 750mg/150ml 150 ML IV SCH (09:16)
[2024-02-11] MEDS ORDERED: SODIUM CHLORIDE 0.9% 1,000 ML IV SCH (10:15)
[2024-02-11] MEDS: MEROPENEM 1GM IVPB 50 ML IV SCH (10:33)
[2024-02-11] MEDS: PANTOPRAZOLE 40 MG/10 ML VIAL INJ IV SCH (10:34)
[2024-02-11] MEDS ORDERED: D5W 5% 1,000 ML IV SCH (10:45)
[2024-02-11] MEDS: ACETAMINOPHEN 325 MG RECT SUPP PR ONE (11:00)
[2024-02-11 12:05] LABS: Creatinine, Urine 116.39 mg/dL (30.0-125.0)
[2024-02-11 12:25] LABS: Alanine Aminotransferase 17 U/L (7-40); Alkaline Phosphatase 47 U/L (46-116); Anion Gap 10 (5-15); Aspartate Aminotransferase 21 U/L (13-40); BUN/Creatinine Ratio 42.2 (10.0-20.0); Blood Alcohol < 3.0 mg/dL (<10); Carbon Dioxide 13 mmol/L (20-30); Glucose 64 mg/dL (74-106); Magnesium 1.1 mg/dL (1.6-2.6); Thyroid Stimulating Hormone 0.38 uIU/mL (0.55-4.78)
[2024-02-11 12:26] LABS: Bilirubin, Total < 0.2 mg/dL (0.2-1.0); Phosphorus 1.8 mg/dL (2.4-5.1); Total Protein 3.1 g/dL (5.7-8.2)
[2024-02-11 12:32] LABS: Blood Urea Nitrogen 27 mg/dL (9-23); Chloride 128 mmol/L (98-107); Sodium 151 mmol/L (136-145)
[2024-02-11 12:34] LABS: Calcium 4.9 mg/dL (8.5-10.1)
[2024-02-11] MEDS: MORPHINE SULFATE INJ 2 MG/ml SYRG IV PRN (13:52)
[2024-02-11] MEDS: D5W/SOD CHLO 0.9% 1,000 ML IV SCH (13:53)
[2024-02-11] MEDS: CALCIUM GLUC 1,000mg/50ml-NS 50 ML IV SCH (15:56)
[2024-02-11] MEDS: POTASSIUM PHOSPHATE 22 MEQ in SODIUM CHL 0.9% 100 ML IV ONE (15:56)
[2024-02-11] MEDS: MAGNESIUM SULFATE 1GM/100ML 100 ML IV SCH (16:24)
[2024-02-11] MEDS: THIAMINE 100mg/ml INJ (200mg/2ml VIAL) IM ONE (17:00)
[2024-02-11] MEDS: CALCIUM GLUC 1,000mg/50ml-NS 50 ML IV ONE (17:08)
[2024-02-11 22:35] LABS: Alanine Aminotransferase 28 U/L (7-40); Albumin 3.4 g/dL (3.2-4.8); Alkaline Phosphatase 79 U/L (46-116); Anion Gap 7 (5-15); Aspartate Aminotransferase 27 U/L (13-40); BUN/Creatinine Ratio 28.1 (10.0-20.0); Bilirubin, Total 0.2 mg/dL (0.2-1.0); Blood Urea Nitrogen 27 mg/dL (9-23); Calcium 8.9 mg/dL (8.5-10.1); Carbon Dioxide 17 mmol/L (20-30); Glucose 223 mg/dL (74-106); Magnesium 2.3 mg/dL (1.6-2.6); Phosphorus 3.5 mg/dL (2.4-5.1); Sodium 142 mmol/L (136-145); Total Protein 5.7 g/dL (5.7-8.2)
[2024-02-11 22:36] LABS: Chloride 118 mmol/L (98-107)
[2024-02-12] VITALS (112 sets, daily range): BP systolic 90–176; BP diastolic 45–154; PULSE 47–120; RESP 10–26; TEMP 98.9–101; O2SAT 66–100
[2024-02-12] MEDS: D5W/SOD CHLO 0.9% 1,000 ML IV SCH ×2 (01:00→09:45)
[2024-02-12 04:23] LABS: Basophils # (auto) 0 10 ^3/uL (0-0.2); Eosinophils # (auto) 0 10 ^3/uL (0-0.8); Hemoglobin 10.2 g/dL (12.2-16.2); Lymphocytes # (auto) 0.2 10 ^3/uL (0.4-5.4); Lymphocytes % (auto) 1.6 % (10.0-50.0); Mean Corpuscular Hgb Conc. 30.8 g/dL (32.0-36.0); Mean Corpuscular Volume 99.8 fL (80.0-100.0)
[2024-02-12 04:26] LABS: Basophils % (auto) 0.3 % (0.0-2.0); Hematocrit 33.1 % (36.0-46.0); Mean Corpuscular Hemoglobin 30.8 pg (28.0-32.0); Monocytes % (auto) 6.6 % (0.0-12.0); Neutrophils # (auto) 13.2 10 ^3/uL (1.6-8.6); Neutrophils % (auto) 91.5 % (37.0-80.0); Red Blood Cells 3.31 10^6/uL (4.0-5.20); Red Cell Distribution Width 14.5 % (11.8-14.3); White Blood Cell 14.4 10^3/uL (4.4-10.8)
[2024-02-12 04:43] LABS: Alanine Aminotransferase 26 U/L (7-40); Albumin 3.2 g/dL (3.2-4.8); Alkaline Phosphatase 77 U/L (46-116); Anion Gap 11 (5-15); BUN/Creatinine Ratio 39.4 (10.0-20.0); Blood Urea Nitrogen 28 mg/dL (9-23); Calcium 9.2 mg/dL (8.7-10.4); Carbon Dioxide 18 mmol/L (20-30); Chloride 117 mmol/L (98-107); Glucose 231 mg/dL (74-106); Magnesium 2.1 mg/dL (1.6-2.6); Potassium 4.6 mmol/L (3.5-5.1); Sodium 146 mmol/L (136-145)
[2024-02-12 04:44] LABS: Aspartate Aminotransferase 24 U/L (13-40); Bilirubin, Total 0.2 mg/dL (0.2-1.0); Phosphorus 2.6 mg/dL (2.4-5.1); Total Protein 5.3 g/dL (5.7-8.2)
[2024-02-12 09:07] LABS: Base Excess -6.9 mmol/L (-2.0-2.0)
[2024-02-12 10:07] LABS: RPR Non Reactive (Non Reactive)
[2024-02-12] MEDS: PANTOPRAZOLE 40 MG/10 ML VIAL INJ IV SCH (10:41)
[2024-02-12] MEDS: INSULIN LANTUS (GLARGINE) 1 /0.01ml (100units/ml) SC SCH (10:47)
[2024-02-12 10:56] LABS: Free T3 1.81 pg/mL (2.3-4.2); Free T4 (Free Thyroxine) 0.93 ng/dL (0.89-1.76)
[2024-02-12] MEDS ORDERED: CLINIMIX PER PHARMACY 0 ML IV SCH (14:15)
[2024-02-12] MEDS: LACTATED RINGER'S 1,000 ML IV SCH (14:50)
[2024-02-12] MEDS: MEROPENEM 1GM IVPB 50 ML IV SCH (18:00)
[2024-02-12] MEDS: AMINO ACID INFUSION IN D5W 1,000 ML IV SCH (21:20)
[2024-02-12] MEDS: MUPIROCIN 2% OINT 15gm or 22gm FOR MRSA NARES EACHNOSTRI SCH (21:49)
[2024-02-13] VITALS (56 sets, daily range): BP systolic 126–175; BP diastolic 50–100; PULSE 54–120; RESP 11–67; TEMP 98.7–100.7; O2SAT 63–100
[2024-02-13] MEDS: VANCOMYCIN 750mg/150ml 150 ML IV SCH (03:10)
[2024-02-13 03:46] LABS: Basophils # (auto) 0 10 ^3/uL (0-0.2); Basophils % (auto) 0.1 % (0.0-2.0); Eosinophils # (auto) 0 10 ^3/uL (0-0.8); Hematocrit 30.8 % (36.0-46.0); Hemoglobin 9.7 g/dL (12.2-16.2); Lymphocytes # (auto) 0.7 10 ^3/uL (0.4-5.4); Lymphocytes % (auto) 4.1 % (10.0-50.0); Mean Corpuscular Hemoglobin 30.3 pg (28.0-32.0); Mean Corpuscular Hgb Conc. 31.4 g/dL (32.0-36.0); Mean Corpuscular Volume 96.7 fL (80.0-100.0); Monocytes # (auto) 1.8 10 ^3/uL (0-1.3); Neutrophils # (auto) 15.4 10 ^3/uL (1.6-8.6); Neutrophils % (auto) 85.8 % (37.0-80.0); Nucleated Red Blood Cells % 0.1 %; Red Blood Cells 3.18 10^6/uL (4.0-5.20); Red Cell Distribution Width 14.4 % (11.8-14.3); White Blood Cell 17.9 10^3/uL (4.4-10.8)
[2024-02-13 04:46] LABS: Alanine Aminotransferase 32 U/L (7-40); Alkaline Phosphatase 61 U/L (46-116); Anion Gap 9 (5-15); Aspartate Aminotransferase 46 U/L (13-40); Calcium 9.8 mg/dL (8.7-10.4); Carbon Dioxide 16 mmol/L (20-30); Chloride 124 mmol/L (98-107); Glucose 108 mg/dL (74-106); Magnesium 1.9 mg/dL (1.6-2.6); Potassium 3.6 mmol/L (3.5-5.1); Sodium 149 mmol/L (136-145)
[2024-02-13 04:47] LABS: Bilirubin, Total 0.4 mg/dL (0.2-1.0); Phosphorus 1.1 mg/dL (2.4-5.1); Total Protein 5.5 g/dL (5.7-8.2)
[2024-02-13 05:10] LABS: BUN/Creatinine Ratio 16.2 (10.0-20.0); Blood Urea Nitrogen 16 mg/dL (9-23)
[2024-02-13] MEDS: ACETAMINOPHEN 325 MG RECT SUPP PR PRN (10:48)
[2024-02-13] MEDS: POTASSIUM PHOSPHATE 22 MEQ in SODIUM CHL 0.9% 100 ML IV ONE (17:34)
[2024-02-14] VITALS (27 sets, daily range): BP systolic 114–175; BP diastolic 41–110; PULSE 54–90; RESP 10–31; TEMP 97.9–99; O2SAT 94–100
[2024-02-14 04:06] LABS: Hematocrit 31.5 % (36.0-46.0); Hemoglobin 10.1 g/dL (12.2-16.2); Mean Corpuscular Hgb Conc. 31.9 g/dL (32.0-36.0); Red Blood Cells 3.35 10^6/uL (4.0-5.20); Red Cell Distribution Width 14.1 % (11.8-14.3); White Blood Cell 17.2 10^3/uL (4.4-10.8)
[2024-02-14 04:11] LABS: Basophils % (manual) 0 (0.0-2.0); Blast Cells 0; Eosinophils % (manual) 0 (0-7); Myelocytes % 0; Promyelocytes % 0; Reactive Lymphocytes 0
[2024-02-14 04:37] LABS: Alanine Aminotransferase 33 U/L (7-40); Albumin 3.1 g/dL (3.2-4.8); Alkaline Phosphatase 54 U/L (46-116); Anion Gap 8 (5-15); Aspartate Aminotransferase 38 U/L (13-40); BUN/Creatinine Ratio 26.7 (10.0-20.0); Bilirubin, Total 0.6 mg/dL (0.2-1.0); Blood Urea Nitrogen 24 mg/dL (9-23); Calcium 9.4 mg/dL (8.7-10.4); Carbon Dioxide 20 mmol/L (20-30); Chloride 121 mmol/L (98-107); Glucose 152 mg/dL (74-106); Magnesium 1.5 mg/dL (1.6-2.6); Phosphorus 1.2 mg/dL (2.4-5.1); Potassium 2.8 mmol/L (3.5-5.1); Sodium 149 mmol/L (136-145); Total Protein 5.3 g/dL (5.7-8.2)
[2024-02-14] MEDS: POTASSIUM CHL 20MEQ/100ML 100 ML IV SCH (05:54)
[2024-02-14 05:58] LABS: Anisocytosis Slight; Band Neutrophils % (manual) 6; Lymphocytes % (manual) 3 (10.0-50.0); Metamyelocytes % 2; Monocytes % (manual) 5 (0-12); Platelet Estimate Adequate
[2024-02-14] MEDS ORDERED: MAGNESIUM SULFATE 1GM/100ML 100 ML IV SCH (12:00)
[2024-02-14] MEDS: VANCOMYCIN 1GM/200ML 200 ML IV SCH (15:00)
[2024-02-14 16:20] LABS: Potassium 3.2 mmol/L (3.5-5.1)
[2024-02-14 16:27] LABS: Magnesium 1.5 mg/dL (1.6-2.6)
[2024-02-15] VITALS (7 sets, daily range): BP systolic 113–146; BP diastolic 54–69; PULSE 54–63; RESP 18–19; TEMP 97.4–100.1; O2SAT 96–100
[2024-02-15] MEDS: MAGNESIUM SULFATE 1GM/100ML 100 ML IV SCH ×3 (00:51→12:39)
[2024-02-15 09:04] LABS: Alanine Aminotransferase 42 U/L (7-40); Albumin 2.8 g/dL (3.2-4.8); Alkaline Phosphatase 50 U/L (46-116); Anion Gap 5 (5-15); Aspartate Aminotransferase 42 U/L (13-40); BUN/Creatinine Ratio 19.3 (10.0-20.0); Bilirubin, Total 0.8 mg/dL (0.2-1.0); Blood Urea Nitrogen 11 mg/dL (9-23); Carbon Dioxide 22 mmol/L (20-30); Glucose 148 mg/dL (74-106); Magnesium 1.4 mg/dL (1.6-2.6); Phosphorus 0.6 mg/dL (2.4-5.1); Sodium 136 mmol/L (136-145); Total Protein 4.7 g/dL (5.7-8.2)
[2024-02-15 09:06] LABS: Chloride 109 mmol/L (98-107)
[2024-02-15 09:08] LABS: Potassium 2.2 mmol/L (3.5-5.1)
[2024-02-15] MEDS: POTASSIUM CHLORIDE 60 MEQ, LIDOCAINE 1% (LOCAL ANESTH.) 6 ML in SODIUM CHL 0.9% 500 ML IV ONE (13:57)
[2024-02-15] MEDS: SODIUM PHOSPHATES 40 MEQ in D5W 5% 250 ML IV ONE (16:44)
[2024-02-15 17:07] LABS: Chloride 107 mmol/L (98-107); Potassium 2.7 mmol/L (3.5-5.1); Sodium 137 mmol/L (136-145)
[2024-02-15 17:08] LABS: Anion Gap 8 (5-15); Carbon Dioxide 22 mmol/L (20-30)
[2024-02-15 17:13] LABS: Glucose 143 mg/dL (74-106)
[2024-02-15 17:14] LABS: BUN/Creatinine Ratio 24.1 (10.0-20.0); Blood Urea Nitrogen 13 mg/dL (9-23)
[2024-02-15] MEDS: ACETAMINOPHEN 325 MG TAB PO PRN (17:26)
[2024-02-15] MEDS ORDERED: AMINO ACID ELECTROLYTE W/ CALC 1,000 ML IV SCH (20:00)
[2024-02-15] MEDS: LOPERAMIDE HCL 2 MG CAP/TAB PO PRN (22:11)
[2024-02-16] VITALS (7 sets, daily range): BP systolic 93–153; BP diastolic 47–66; PULSE 53–79; RESP 18–20; TEMP 97.8–99.2; O2SAT 95–98
[2024-02-16 06:02] LABS: Basophils # (auto) 0 10 ^3/uL (0-0.2); Basophils % (auto) 0.1 % (0.0-2.0); Eosinophils # (auto) 0.2 10 ^3/uL (0-0.8); Eosinophils % (auto) 1.3 % (0.0-7.0); Hematocrit 28.5 % (36.0-46.0); Hemoglobin 9.4 g/dL (12.2-16.2); Lymphocytes # (auto) 2.1 10 ^3/uL (0.4-5.4); Lymphocytes % (auto) 17.1 % (10.0-50.0); Mean Corpuscular Hemoglobin 30.5 pg (28.0-32.0); Mean Corpuscular Hgb Conc. 33.1 g/dL (32.0-36.0); Mean Corpuscular Volume 92.3 fL (80.0-100.0); Monocytes # (auto) 1.2 10 ^3/uL (0-1.3); Monocytes % (auto) 10.1 % (0.0-12.0); Neutrophils # (auto) 8.6 10 ^3/uL (1.6-8.6); Neutrophils % (auto) 71.4 % (37.0-80.0); Nucleated Red Blood Cells % 0.2 %; Red Blood Cells 3.09 10^6/uL (4.0-5.20); Red Cell Distribution Width 13.5 % (11.8-14.3); White Blood Cell 12.1 10^3/uL (4.4-10.8)
[2024-02-16 06:17] LABS: Chloride 109 mmol/L (98-107); Potassium 2.6 mmol/L (3.5-5.1); Sodium 139 mmol/L (136-145)
[2024-02-16 06:18] LABS: Anion Gap 6 (5-15); Calcium 7.6 mg/dL (8.5-10.1); Carbon Dioxide 24 mmol/L (20-30)
[2024-02-16 06:23] LABS: BUN/Creatinine Ratio 16.1 (10.0-20.0); Blood Urea Nitrogen 9 mg/dL (9-23); Glucose 112 mg/dL (74-106)
[2024-02-16 08:50] LABS: Platelet Estimate Decreased
[2024-02-16] MEDS: CHOLESTYRAMINE 4 GM POWDER PO SCH (12:07)
[2024-02-16] MEDS: POTASSIUM CHL 20 Meq TABLET PO ONE (16:54)
[2024-02-16] MEDS: POTASSIUM CHLORIDE 40 MEQ, LIDOCAINE 1% (LOCAL ANESTH.) 4 ML in SODIUM CHL 0.9% 250 ML IV ONE (16:54)
[2024-02-16] MEDS: hydrOXYchloroQUINE SULFATE 200 MG TAB PO SCH (21:26)
[2024-02-16] MEDS: ZOLPIDEM TARTRATE 5 MG TAB PO PRN (21:27)
[2024-02-16] MEDS: busPIRone HCL 10 MG TAB PO SCH (21:27)
[2024-02-16] MEDS: GABAPENTIN 300 MG CAP PO SCH (21:27)
[2024-02-16] MEDS: PRAMIPEXOLE DIHYDROCHLORIDE MO 0.25 MG TAB PO SCH (21:28)
[2024-02-17] VITALS (9 sets, daily range): BP systolic 95–143; BP diastolic 53–74; PULSE 55–80; RESP 16–19; TEMP 98.2–99.8; O2SAT 94–100
[2024-02-17] MEDS: PANTOPRAZOLE 40 MG TAB PO SCH (04:18)
[2024-02-17 07:31] LABS: Alanine Aminotransferase 49 U/L (7-40); Albumin 2.7 g/dL (3.2-4.8); Alkaline Phosphatase 46 U/L (46-116); Anion Gap 3 (5-15); Aspartate Aminotransferase 39 U/L (13-40); BUN/Creatinine Ratio 13.7 (10.0-20.0); Blood Urea Nitrogen 7 mg/dL (9-23); Calcium 7.8 mg/dL (8.5-10.1); Carbon Dioxide 25 mmol/L (20-30); Chloride 111 mmol/L (98-107); Glucose 116 mg/dL (74-106); Magnesium 1.7 mg/dL (1.6-2.6); Potassium 3.9 mmol/L (3.5-5.1); Sodium 139 mmol/L (136-145)
[2024-02-17 07:32] LABS: Bilirubin, Total 0.3 mg/dL (0.2-1.0); Phosphorus 1.7 mg/dL (2.4-5.1); Total Protein 4.4 g/dL (5.7-8.2)
[2024-02-17 07:41] LABS: Basophils # (auto) 0 10 ^3/uL (0-0.2); Basophils % (auto) 0.1 % (0.0-2.0); Eosinophils # (auto) 0.2 10 ^3/uL (0-0.8); Eosinophils % (auto) 1.1 % (0.0-7.0); Hematocrit 27.3 % (36.0-46.0); Lymphocytes # (auto) 1.9 10 ^3/uL (0.4-5.4); Lymphocytes % (auto) 14.3 % (10.0-50.0); Mean Corpuscular Volume 93.9 fL (80.0-100.0); Monocytes % (auto) 7.2 % (0.0-12.0); Neutrophils # (auto) 10.5 10 ^3/uL (1.6-8.6); Neutrophils % (auto) 77.3 % (37.0-80.0); Red Blood Cells 2.91 10^6/uL (4.0-5.20); Red Cell Distribution Width 13.8 % (11.8-14.3); White Blood Cell 13.6 10^3/uL (4.4-10.8)
[2024-02-17] MEDS: POTASSIUM PHOSPHATE 22 MEQ in SODIUM CHL 0.9% 100 ML IV ONE (10:29)
[2024-02-17] MEDS: MAGNESIUM OXIDE 400 MG TAB PO ONE (10:30)
[2024-02-17] MEDS: PARoxetine 20 MG TAB PO SCH (10:32)
[2024-02-17] MEDS: cefTRIAXone 1GM/50ML D5W 50 ML IV ONE (17:48)
[2024-02-18] VITALS (7 sets, daily range): BP systolic 103–154; BP diastolic 50–72; PULSE 62–95; RESP 16–20; TEMP 97.6–99.8; O2SAT 97–100
[2024-02-18 06:59] LABS: Basophils # (auto) 0 10 ^3/uL (0-0.2); Basophils % (auto) 0.2 % (0.0-2.0); Eosinophils # (auto) 0.2 10 ^3/uL (0-0.8); Eosinophils % (auto) 1.3 % (0.0-7.0); Hematocrit 29.3 % (36.0-46.0); Hemoglobin 9.2 g/dL (12.2-16.2); Lymphocytes # (auto) 1.8 10 ^3/uL (0.4-5.4); Lymphocytes % (auto) 10.3 % (10.0-50.0); Mean Corpuscular Hemoglobin 30.3 pg (28.0-32.0); Mean Corpuscular Hgb Conc. 31.3 g/dL (32.0-36.0); Mean Corpuscular Volume 96.9 fL (80.0-100.0); Neutrophils # (auto) 14.2 10 ^3/uL (1.6-8.6); Neutrophils % (auto) 82.2 % (37.0-80.0); Red Blood Cells 3.02 10^6/uL (4.0-5.20); Red Cell Distribution Width 14.2 % (11.8-14.3)
[2024-02-18 07:09] LABS: White Blood Cell 17.2 10^3/uL (4.4-10.8)
[2024-02-18 07:17] LABS: Anion Gap 2 (5-15); Carbon Dioxide 30 mmol/L (20-30); Chloride 108 mmol/L (98-107); Potassium 3.7 mmol/L (3.5-5.1); Sodium 140 mmol/L (136-145)
[2024-02-18 07:18] LABS: Calcium 8.3 mg/dL (8.5-10.1)
[2024-02-18 07:22] LABS: Glucose 105 mg/dL (74-106)
[2024-02-18 07:23] LABS: BUN/Creatinine Ratio 9.4 (10.0-20.0); Blood Urea Nitrogen 5 mg/dL (9-23); Magnesium 1.8 mg/dL (1.6-2.6)
[2024-02-18 07:25] LABS: Phosphorus 2.7 mg/dL (2.4-5.1)
[2024-02-18] MEDS ORDERED: cefTRIAXone 1GM/50ML D5W 50 ML IV SCH (09:00)
[2024-02-18] MEDS: PIPERACILLIN-TAZOB 3.375GM 100 ML IV ONE (09:30)
[2024-02-18 09:55] LABS: Urine Bacteria FEW /hpf (None Seen); Urine Blood Negative /uL (Negative); Urine Budding Yeast MANY /hpf (None Seen); Urine Clarity Clear (Clear); Urine Color Light-Yellow (Yellow); Urine Mucus FEW (None Seen); Urine Protein, UAD TRACE (Negative); Urine Specific Gravity 1.009 (1.001-1.035); Urine Urobilinogen Normal (Negative); Urine WBC 3 /hpf (0 - 5)
[2024-02-18] MEDS: VANCOMYCIN HCL 250 MG CAP PO ONE (10:45)
[2024-02-18] MEDS: VANCOMYCIN HCL 250 MG CAP PO SCH (12:00)
[2024-02-18] MEDS: FLUCONAZOLE 200MG/100ML 100 ML IV ONE (12:30)
[2024-02-18] MEDS: PIPERACILLIN-TAZOB 3.375GM 100 ML IV SCH (14:21)
[2024-02-19] VITALS (10 sets, daily range): BP systolic 113–136; BP diastolic 52–77; PULSE 60–82; RESP 17–19; TEMP 98.3–99.5; O2SAT 96–100
[2024-02-19 06:05] LABS: Basophils # (auto) 0 10 ^3/uL (0-0.2); Basophils % (auto) 0.2 % (0.0-2.0); Eosinophils # (auto) 0.1 10 ^3/uL (0-0.8); Eosinophils % (auto) 0.7 % (0.0-7.0); Hematocrit 28.8 % (36.0-46.0); Lymphocytes # (auto) 2.1 10 ^3/uL (0.4-5.4); Lymphocytes % (auto) 10.2 % (10.0-50.0); Mean Corpuscular Hemoglobin 30.2 pg (28.0-32.0); Mean Corpuscular Hgb Conc. 31.4 g/dL (32.0-36.0); Mean Corpuscular Volume 96.2 fL (80.0-100.0); Monocytes % (auto) 4.9 % (0.0-12.0); Neutrophils # (auto) 16.9 10 ^3/uL (1.6-8.6); Red Blood Cells 2.99 10^6/uL (4.0-5.20); Red Cell Distribution Width 14.5 % (11.8-14.3); White Blood Cell 20.1 10^3/uL (4.4-10.8)
[2024-02-19 06:11] LABS: Anion Gap 3 (5-15); Calcium 8.6 mg/dL (8.7-10.4); Carbon Dioxide 30 mmol/L (20-30); Chloride 107 mmol/L (98-107); Sodium 140 mmol/L (136-145)
[2024-02-19 06:17] LABS: BUN/Creatinine Ratio 13.2 (10.0-20.0); Blood Urea Nitrogen 9 mg/dL (9-23); Glucose 109 mg/dL (74-106)
[2024-02-19 06:18] LABS: Magnesium 1.8 mg/dL (1.6-2.6)
[2024-02-19 06:19] LABS: Phosphorus 3.6 mg/dL (2.4-5.1)
[2024-02-19] MEDS: FLUCONAZOLE 200MG/100ML 100 ML IV SCH (09:01)
[2024-02-19] MEDS: FLORASTOR (S. BOULARDII) 250 MG CAP PO SCH (09:02)
[2024-02-19] MEDS: ENOXAPARIN SOD 40 MG/0.4 ML SYRINGE SC ONE (14:10)
[2024-02-20] VITALS (9 sets, daily range): BP systolic 119–137; BP diastolic 53–84; PULSE 56–100; RESP 17–19; TEMP 98–98.4; O2SAT 96–100
[2024-02-20 06:40] LABS: Eosinophils # (auto) 0.2 10 ^3/uL (0-0.8); Nucleated Red Blood Cells % 0.1 %; White Blood Cell 12.6 10^3/uL (4.4-10.8)
[2024-02-20 06:44] LABS: Basophils # (auto) 0 10 ^3/uL (0-0.2); Basophils % (auto) 0.3 % (0.0-2.0); Eosinophils % (auto) 1.5 % (0.0-7.0); Hematocrit 33.4 % (36.0-46.0); Hemoglobin 10.5 g/dL (12.2-16.2); Lymphocytes # (auto) 1.7 10 ^3/uL (0.4-5.4); Lymphocytes % (auto) 13.2 % (10.0-50.0); Mean Corpuscular Hgb Conc. 31.4 g/dL (32.0-36.0); Mean Corpuscular Volume 98.6 fL (80.0-100.0); Monocytes % (auto) 8.2 % (0.0-12.0); Neutrophils # (auto) 9.6 10 ^3/uL (1.6-8.6); Neutrophils % (auto) 76.8 % (37.0-80.0); Red Blood Cells 3.38 10^6/uL (4.0-5.20); Red Cell Distribution Width 14.8 % (11.8-14.3)
[2024-02-20 07:00] LABS: Carbon Dioxide 29 mmol/L (20-30); Chloride 109 mmol/L (98-107); Potassium 3.8 mmol/L (3.5-5.1); Sodium 142 mmol/L (136-145)
[2024-02-20 07:06] LABS: Glucose 98 mg/dL (74-106); Magnesium 2.1 mg/dL (1.6-2.6)
[2024-02-20 07:12] LABS: BUN/Creatinine Ratio 7.6 (10.0-20.0); Blood Urea Nitrogen < 5 mg/dL (9-23)
[2024-02-20 07:41] LABS: Anion Gap 4 (5-15)
[2024-02-20] MEDS: MELOXICAM 15MG TABLET PO SCH (10:00)
[2024-02-20] MEDS: ENOXAPARIN SOD 40 MG/0.4 ML SYRINGE SC SCH (11:01)
[2024-02-20] MEDS ORDERED: HYDROcodone-ACET 5/325MG TAB PO PRN (16:45)
[2024-02-20] MEDS: HYDROcodone-ACET 5/325MG TAB PO PRN (21:41)
[2024-02-21] VITALS (8 sets, daily range): BP systolic 109–143; BP diastolic 62–76; PULSE 61–83; RESP 16–19; TEMP 97.8–98.8; O2SAT 94–99
[2024-02-22 01:00] VITALS: BP 128/79; PULSE 64; RESP 18; TEMP 97.8; O2SAT 98
[2024-02-22 05:00] VITALS: BP 144/71; PULSE 62; RESP 18; TEMP 98; O2SAT 96
[2024-02-22] MEDS ORDERED: GASTROGRAFIN 120 ML SOL ONE (07:42)
[2024-02-22 08:00] VITALS: PULSE 62
[2024-02-22 09:00] VITALS: BP 130/55; PULSE 61; RESP 16; TEMP 97.8; O2SAT 99
[2024-02-22] MEDS: FLUCONAZOLE 100 MG TAB PO SCH (10:00)
== END 2024-02-22 12:39 | DRG 720 ==
LOC: ER 12:01 → EDBD 12:01 → TELE 18:43 → ICU WEST 02-11 04:43 → TELE-EAST 02-14 11:40
PROVIDERS: ADMIT Internal Medicine Pulmonary Disease; ATTEND Family Medicine
DX: A41.9 Sepsis, unspecified organism (principal); N17.0 Acute kidney failure with tubular necrosis; R65.21 Severe sepsis with septic shock; G92.8 Other toxic encephalopathy; E44.1 Mild protein-calorie malnutrition; T40.2X1A Poisoning by other opioids, accidental (unintentional), initial encounter; E11.649 Type 2 diabetes mellitus with hypoglycemia without coma; D64.9 Anemia, unspecified; E11.22 Type 2 diabetes mellitus with diabetic chronic kidney disease; E87.5 Hyperkalemia; E86.0 Dehydration; N39.0 Urinary tract infection, site not specified; I12.9 Hypertensive chronic kidney disease with stage 1 through stage 4 chronic kidney disease, or unspecified chronic kidney disease; E87.0 Hyperosmolality and hypernatremia; F32.A Depression, unspecified; E83.42 Hypomagnesemia; E83.51 Hypocalcemia; E83.39 Other disorders of phosphorus metabolism; M06.9 Rheumatoid arthritis, unspecified; G89.4 Chronic pain syndrome; N18.9 Chronic kidney disease, unspecified; F41.9 Anxiety disorder, unspecified; E87.6 Hypokalemia; G25.81 Restless legs syndrome; Z90.49 Acquired absence of other specified parts of digestive tract; Z88.0 Allergy status to penicillin; Z88.2 Allergy status to sulfonamides; Z88.8 Allergy status to other drugs, medicaments and biological substances; Z91.041 Radiographic dye allergy status; Z91.040 Latex allergy status; Z79.899 Other long term (current) drug therapy; Z79.82 Long term (current) use of aspirin; Z88.3 Allergy status to other anti-infective agents; Z88.1 Allergy status to other antibiotic agents; Z91.048 Other nonmedicinal substance allergy status; Z83.3 Family history of diabetes mellitus; Z82.3 Family history of stroke; Z82.49 Family history of ischemic heart disease and other diseases of the circulatory system; Z82.5 Family history of asthma and other chronic lower respiratory diseases; Z68.27 Body mass index [BMI] 27.0-27.9, adult
CPT/HCPCS: 36415; 36600; 70450; 71045; 72125; 73590; 74176; 80048; 80053; 80202; 80307; 80320; 81001; 82140; 82270; 82550; 82565; 82570; 82805; 82962; 83036; 83605; 83615; 83690; 83735; 83880; 83986; 84100; 84132; 84133; 84300; 84439; 84443; 84481; 84484; 85007; 85025; 85027; 85048; 85610; 86592; 87040; 87045; 87081; 87086; 87088; 87427; 87493; 93005; 93306; 94640; 97110; 97116; 97163; 97530; 99291; C9113; G0378; J1450; J1815; J2001; J2185; J2405; J2543; J3480; J7042; J7060; P9047

== ENCOUNTER 2025-07-31 15:08 | Emergency (ER) | payer MEDICAID ==
[~2025-07-31] VITALS: Ht 157.5 cm; Wt 68.0 kg
[~2025-07-31 15:08] MED LIST changes: -ESOM0.1C PO; +ESOM1CAP37 PO
[2025-07-31 15:14] VITALS: BP 140/78; PULSE 78; RESP 16; TEMP 97.3; O2SAT 99
[2025-07-31] MEDS ORDERED: ALBUTEROL SULF 2.5 MG/0.5ML(0.5%) NEB SOLN NEB ONE (15:30)
[2025-07-31] MEDS ORDERED: IPRATROPIUM BROM 0.5 MG/2.5ML INH SOL NEB ONE (15:30)
--- NOTE | 2025-07-31 15:54 | ED.PDOC ---
SOB-HPI HPI Comments 65 year old female with PMHx COPD, CKF, anxiety, arthritis, asthma, depression, DM, HTN presents to the ED with a chief complaint of shortness of breath onset today about 30 minutes prior to ED arrival. Per EMS, patient began experiencing shortness of breath about 30 minutes prior to ED arrival, has been experiencing productive cough for the past 4 month. She is currently on home O2 2L NC, machine was not working. Was given a med neb treatment in route to ED by EMS, states symptoms have improved. Denies chest pain, dizziness, fever, chills, headache, blurred vision, nausea, vomiting, diarrhea. No other symptoms or modifying factors present at this time. 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 Family History Family History: No family hx of DM, No family hx of Heart michael, Family hx of Cancer Social History Smoker: Non-Smoker Alcohol: Denies ETOH Use Drugs: Denies Drug Use Lives In: Home Constitutional: denies: chills, diaphoresis, fatigue, fever, malaise, sweats, weakness, others EENTM: denies: blurred vision, double vision, ear bleeding, ear discharge, ear drainage, ear pain, ear ringing, eye pain, eye redness, hearing loss, mouth pain, mouth swelling, nasal discharge, nose bleeding, nose congestion, nose pain, photophobia, tearing, throat pain, throat swelling, voice changes, others Respiratory: reports: cough, shortness of breath; denies: hemoptysis, orthopnea, SOB at rest, SOB with excertion, stridor, wheezing, others Cardiovascular: denies: chest pain, dizzy spells, diaphoresis, Dyspnea on exertion, edema, irregular heart beat, left arm pain, lightheadedness, palpitations, PND, syncope, others Gastrointestinal: denies: abdomen distended, abdominal pain, blood streaked bowels, constipated, diarrhea, dysphagia, difficulty swallowing, hematemesis, melena, nausea, poor appetite, poor fluid intake, rectal bleeding, rectal pain, vomiting, others Genitourinary: denies: abnormal vagina bleeding, burning, dyspareunia, dysuria, flank pain, frequency, hematuria, incontinence, pain, , vagina discharge, urgency, others Neurological: denies: dizziness, fainting, headache, left sided numbness, left sided weakness, numbness, paresthesia, pre-existing deficit, right sided numbness, right sided weakness, seizure, speech problems, tingling, tremors, weakness, others Musculoskeletal: denies: back pain, gout, joint pain, joint swelling, muscle pain, muscle stiffness, neck pain, others Integumetry: denies: bruises, change in color, change in hair/nails, dryness, laceration, lesions, lumps, rash, wounds, others Allergic/Immunocompromised: denies: Difficulty Healing, Frequent Infections, Hives, Itching, others Hematologic/Lymphatic: denies: anemia, blood clots, easy bleeding, easy bruising, swollen glands, others Endocrine: denies: excessive hunger, excessive sweating, excessive thirst, excessive urination, flushing, intolerance to cold, intolerance to heat, unexplained weight gain, unexplained weight loss, others Psychiatric: denies: anxiety, bipolar disorder, depression, hopeless, panic disorder, schizophrenia, sleepless, suicidal, others All Other Systems: Reviewed and Negative Physical Exam General Appearance: Normal HEENT: Normal ENT Inspection, Pharynx Normal, TMs Normal Neck: Full Range of Motion, Non-Tender, Normal, Normal Inspection Respiratory: Chest Non-Tender, Lungs Clear, No Accessory Muscle Use, No Respiratory Distress, Normal Breath Sounds Cardiovascular: No Edema, No JVD, No Murmur, No Gallop, Normal Peripheral Pulses, Regular Rate/Rhythm Breast Exam: Deferred Gastrointestinal: No Organomegaly, Non Tender, No Pulsatile Mass, Normal Bowel Sounds, Soft Genitalia: Deferred Pelvic: Deferred Rectal: Deferred Extremities: No calf tenderness, Normal capillary refill, Normal inspection, Normal range of motion, Non-tender, No pedal edema Musculoskeletal : Apperance: Normal Neurologic: Alert, town administrator II-XII nml as Tested, No Motor Deficits, Normal Affect, Normal Mood, No Sensory Deficits Cerebellar Function: Normal Reflexes: Normal Skin: Dry, Normal Color, Warm Lymphatic: No Adenopathy Was a procedure done? Was a procedure done?: No Differential Dx Differential Diagnosis: Asthma, Bronchitis, COPD, Pneumonia, URI X-Ray, Labs, Meds, VS Vital Signs Date Time Temp Pulse Resp B/P (MAP) Pulse Ox O2 Delivery O2 Flow Rate FiO2 07/31/25 15:14 97.3 78 16 140/78 99 97.3 Time of 1ST Reevaluation: 16:15 Reevaluation 1ST: Unchanged Patient Education/Counseling: Diagnosis, Treatment, Prognosis Family Education/Counseling: No Family Present SEPSIS Sepsis Screen Date sepsis recognized/suspect: Jul 31, 2025 Time Sepsis recognized/suspect: 1516 Recent Procedure: No On Antibiotic Therapy: No Respiratory Rate >20: No Heart Rate >90: No Temp<36 C (96.8 F) or >38.3 C: No SBP <90 or MAP <65 mmHG: No New Acute Mental Status Change: No Is the patient on CPAP, BIPAP,: No Physician Orders Electrocardigram (07/31/25 15:16) B-Type Natriuretic Peptide (07/31/25 15:19) Basic Metabolic Panel (07/31/25 15:19) Complete Blood Count (07/31/25 15:19) Troponin-I Hs (07/31/25 15:19) Chest Portable (07/31/25 15:19) Troponin-I Hs (07/31/25 16:19) Troponin-I Hs (07/31/25 18:19) Electrocardigram (07/31/25 16:19) Electrocardigram (07/31/25 18:19) Vital Signs Date Time Temp Pulse Resp B/P (MAP) Pulse Ox O2 Delivery O2 Flow Rate FiO2 07/31/25 15:14 97.3 78 16 140/78 99 97.3 Critical Care Note Critical Care Time?: No Stability Stability form required: No Heart Score Heart Score: Heart Score Response (Comments) Value History N/A 0 EKG N/A 0 Age N/A 0 Risk Factors N/A 0 Troponin N/A 0 Total 0 I personally scribed for SOCO WOOD MD ([email or web address]) on 07/31/25 at 15:53. Electronically submitted by Chantel Montana ([email or web address]). SOCO WOOD MD Jul 31, 2025 15:53
--- NOTE | 2025-07-31 16:33 | DVH ---
AP portable chest Comparison: 02/18/2024 CLINICAL INDICATION: sob FINDINGS: Heart size slightly enlarged. The aorta is tortuous. There is some atelectasis in the left lower lung zone IMPRESSION: 1. No acute cardiopulmonary pathology
--- NOTE | 2025-08-01 11:47 | ECG ---
[facility] Test Date: 2025-07-31 Test Time: 15:12:18 Pat Name: CARSON ALVAREZ Department: REPLACED BY [facility] ED Patient ID: REPLACED BY [facility]-[id number] Room: Gender: F Industrial Design Engineer: wendy : [id number] Requested By: EMERGENCY EMERGENCY Order Number: [id number] Reading MD: Measurements Intervals Wake Rate: 70 P: 41 WY: 149 QRS: 0 QRSD: 97 T: 34 QT: 404 QTc: 436 Interpretive Statements Sinus rhythm Borderline T abnormalities, anterior leads Please click the below link to view image of tracing.
== END 2025-07-31 17:26 | disposition left against medical advice (07) ==
LOC: ER 15:08 → EDBD 15:08 → ER 17:26
DX: R06.02 Shortness of breath (principal); R05.9 Cough, unspecified; I12.9 Hypertensive chronic kidney disease with stage 1 through stage 4 chronic kidney disease, or unspecified chronic kidney disease; E11.22 Type 2 diabetes mellitus with diabetic chronic kidney disease; N18.9 Chronic kidney disease, unspecified; F41.9 Anxiety disorder, unspecified; J44.89 Other specified chronic obstructive pulmonary disease; M19.90 Unspecified osteoarthritis, unspecified site; D64.9 Anemia, unspecified; Z90.49 Acquired absence of other specified parts of digestive tract; Z98.51 Tubal ligation status
CPT/HCPCS: 71045; 93005